=== PATIENT | female | born 1955 | race American Indian/Alaskan Native ===

== ENCOUNTER 2019-12-10 11:21 | Inpatient (IN) | payer MEDICAID, OTHER ==
--- NOTE | 2019-12-10 12:18 | XRay Report ---
CHEST 1 VIEW 12/10/2019 11:10 AM INDICATION / CLINICAL INFORMATION: Shortness of breath. COMPARISON: None available. FINDINGS: SUPPORT DEVICES: None. HEART / MEDIASTINUM: Mild cardiomegaly. LUNGS / PLEURA: There is a small right pleural effusion and there is mild pulmonary vascular congesti on. No pneumothorax. ADDITIONAL FINDINGS: No significant additional findings. IMPRESSION: 1. Findings probably reflecting CHF with a small right pleural effusion, mild cardiomegaly, and mild pulmonary vascular congestion. Signer Name: Isaac Johnson MD Signed: 12/10/2019 12:13 PM Workstation Name: [id number]
--- NOTE | 2019-12-10 12:23 | Emergency Department Report ---
ED Shortness of Breath HPI - General Chief Complaint: Arrhythmia/Palpitations Stated Complaint: KEENA Time Seen by Provider: 12/10/19 11:49 Source: patient, EMS Mode of arrival: Stretcher Limitations: No Limitations - History of Present Illness Initial Comments: 64-year-old female with no known past medical history (denies hypertension contrary to triage) and takes no current medications presents to the hospital complaining of progressive worsening shortness of breath x3 weeks. Positive dyspnea exertion, worsening orthopnea, and PND. Cough occasionally productive of clear sputum. Patient denies chest pain, or fever. Intermittent ankle and feet swelling have also been noted that improves with elevation. Patient does not currently have a primary care doctor or see a station baggage agent. As per medical record review patient was admitted here in April 2013 and had a cardiac cath showed normal coronary arteries and LV function. EMS EKGs (2 of them) shows bigemeny and trigemeny - Related Data Home Medications Medication Instructions Recorded Confirmed Last Taken No Known Home Medications [No 12/10/19 12/10/19 Unknown Reported Home Medications] Allergies Allergy/AdvReac Type Severity Reaction Status Date / Time tramadol Allergy Rash, Verified 07/14/13 10:15 HIVES, ITCH,CHEST PAIN, BURNING morphine AdvReac HIVES, Verified 07/14/13 10:15 ITCH, CHEST PAIN, BURNING Sulfa (Sulfonamide AdvReac HIVES, Verified 07/14/13 10:15 Antibiotics) ITCH,CHEST PAIN, BURNING ED Review of Systems ROS: Stated complaint: KEENA Other details as noted in HPI ED Past Medical Hx - Past Medical History Hx Hypertension: Yes (06/2013) Hx Congestive Heart Failure: No Hx Diabetes: No Hx Asthma: No Hx COPD: No - Surgical History Additional Surgical History: left ankle. . hysterectomy - Social History Smoking Status: Never Smoker Substance Use Type: None - Medications Home Medications: Home Medications Medication Instructions Recorded Confirmed Last Taken Type No Known Home Medications [No 12/10/19 12/10/19 Unknown History Reported Home Medications] ED Physical Exam - General Limitations: No Limitations ED Course Vital Signs 12/10/19 12/10/19 12/10/19 11:34 11:44 11:45 Temperature 97.9 F Pulse Rate 94 H 92 H Respiratory 24 22 31 H Rate Blood Pressure 116/77 Blood Pressure 124/84 [Right] O2 Sat by Pulse 94 100 Oximetry 12/10/19 12/10/19 12/10/19 11:59 12:00 12:16 Temperature Pulse Rate 90 94 H Respiratory 18 12 21 Rate Blood Pressure 116/77 94/76 Blood Pressure [Right] O2 Sat by Pulse 100 100 100 Oximetry 12/10/19 12/10/19 12/10/19 12:30 12:46 13:00 Temperature Pulse Rate 92 H 86 89 Respiratory 33 H 22 25 H Rate Blood Pressure 109/97 119/80 117/79 Blood Pressure [Right] O2 Sat by Pulse 100 100 100 Oximetry 12/10/19 12/10/19 12/10/19 13:16 13:30 13:45 Temperature Pulse Rate 96 H 98 H Respiratory 28 H 14 30 H Rate Blood Pressure 117/79 125/85 137/89 Blood Pressure [Right] O2 Sat by Pulse 100 100 100 Oximetry 12/10/19 12/10/19 12/10/19 14:00 14:15 14:30 Temperature Pulse Rate Respiratory 29 H 24 22 Rate Blood Pressure 137/89 138/91 120/101 Blood Pressure [Right] O2 Sat by Pulse Oximetry 12/10/19 12/10/19 12/10/19 14:46 15:00 15:15 Temperature Pulse Rate Respiratory 17 30 H 25 H Rate Blood Pressure 120/101 120/101 124/105 Blood Pressure [Right] O2 Sat by Pulse Oximetry 12/10/19 12/10/19 12/10/19 15:30 15:45 16:00 Temperature Pulse Rate Respiratory 31 H 28 H 33 H Rate Blood Pressure 124/105 132/102 135/101 Blood Pressure [Right] O2 Sat by Pulse Oximetry 12/10/19 16:16 Temperature Pulse Rate Respiratory 23 Rate Blood Pressure 132/82 Blood Pressure [Right] O2 Sat by Pulse Oximetry - Consultations Consultation #1: 12/10/19 13:34 Case D/w Dr Lewis recommends Lasix 40 mg IV twice a day. Will consult for echocardiogram ED Medical Decision Making - Lab Data Result diagrams: 12/10/19 12:13 12/10/19 12:13 Lab Results 12/10/19 12/10/19 12/10/19 Range/Units 12:13 12:13 12:13 WBC 6.5 (4.5-11.0) K/mm3 RBC 3.60 L (3.65-5.03) M/mm3 Hgb 11.4 (10.1-14.3) gm/dl Hct 35.5 (30.3-42.9) % MCV 99 H (79-97) fl MCH 32 (28-32) pg MCHC 32 (30-34) % RDW 17.3 H (13.2-15.2) % Plt Count 298 (140-440) K/mm3 Lymph % (Auto) 32.7 (13.4-35.0) % [place] % (Auto) 6.4 (0.0-7.3) % Eos % (Auto) 0.6 (0.0-4.3) % Baso % (Auto) 0.7 (0.0-1.8) % Lymph # 2.1 (1.2-5.4) K/mm3 [place] # 0.4 (0.0-0.8) K/mm3 Eos # 0.0 (0.0-0.4) K/mm3 Baso # 0.0 (0.0-0.1) K/mm3 Seg Neutrophils % 59.6 (40.0-70.0) % Seg Neutrophils # 3.9 (1.8-7.7) K/mm3 PT 15.3 H (12.2-14.9) Sec. INR 1.24 H (0.87-1.13) APTT 27.3 (24.2-36.6) Sec. Sodium 137 (137-145) mmol/L Potassium 4.0 (3.6-5.0) mmol/L Chloride 100.3 (98-107) mmol/L Carbon Dioxide 24 (22-30) mmol/L Anion Gap 17 mmol/L BUN 13 (7-17) mg/dL Creatinine 0.8 (0.7-1.2) mg/dL Estimated GFR > 60 ml/min BUN/Creatinine Ratio 16 % Glucose 145 H (65-100) mg/dL Calcium 9.6 (8.4-10.2) mg/dL Magnesium 2.10 (1.7-2.3) mg/dL Troponin T < 0.010 (0.00-0.029) ng/mL NT-Pro-B Natriuret Pep (0-900) pg/mL 12/10/19 Range/Units 12:13 WBC (4.5-11.0) K/mm3 RBC (3.65-5.03) M/mm3 Hgb (10.1-14.3) gm/dl Hct (30.3-42.9) % MCV (79-97) fl MCH (28-32) pg MCHC (30-34) % RDW (13.2-15.2) % Plt Count (140-440) K/mm3 Lymph % (Auto) (13.4-35.0) % [place] % (Auto) (0.0-7.3) % Eos % (Auto) (0.0-4.3) % Baso % (Auto) (0.0-1.8) % Lymph # (1.2-5.4) K/mm3 [place] # (0.0-0.8) K/mm3 Eos # (0.0-0.4) K/mm3 Baso # (0.0-0.1) K/mm3 Seg Neutrophils % (40.0-70.0) % Seg Neutrophils # (1.8-7.7) K/mm3 PT (12.2-14.9) Sec. INR (0.87-1.13) APTT (24.2-36.6) Sec. Sodium (137-145) mmol/L Potassium (3.6-5.0) mmol/L Chloride (98-107) mmol/L Carbon Dioxide (22-30) mmol/L Anion Gap mmol/L BUN (7-17) mg/dL Creatinine (0.7-1.2) mg/dL Estimated GFR ml/min BUN/Creatinine Ratio % Glucose (65-100) mg/dL Calcium (8.4-10.2) mg/dL Magnesium (1.7-2.3) mg/dL Troponin T (0.00-0.029) ng/mL NT-Pro-B Natriuret Pep 53609 H (0-900) pg/mL - EKG Data -: EKG Interpreted by Me (FREQUENT PVC'S ) EKG shows normal: sinus rhythm, ST-T waves (NO STEMI) Rate: normal Critical Care Time: No Critical care attestation.: If time is entered above; I have spent that time in minutes in the direct care of this critically ill patient, excluding procedure time. ED Disposition Clinical Impression: New onset of congestive heart failure Disposition: DC-09 OP ADMIT IP TO THIS HOSP Is pt being admited?: Yes Condition: Stable Time of Disposition: 13:38 (Dr Duque/hosp)
[2019-12-10 12:31] LABS: Basophils % (Auto) 0.7 % (0.0-1.8); Eosinophils % (Auto) 0.6 % (0.0-4.3); Hematocrit 35.5 % (30.3-42.9); Hemoglobin 11.4 gm/dl (10.1-14.3); Lymphocytes # (Auto) 2.1 K/mm3 (1.2-5.4); Lymphocytes % (Auto) 32.7 % (13.4-35.0); Mean Corpuscular HGB Conc 32 % (30-34); Mean Corpuscular Volume 99 fl (79-97); Monocytes # (Auto) 0.4 K/mm3 (0.0-0.8); Monocytes % (Auto) 6.4 % (0.0-7.3); Platelet Count 298 K/mm3 (140-440); Red Cell Distribution Width 17.3 % (13.2-15.2)
[2019-12-10 12:43] LABS: INR 1.24 (0.87-1.13)
[2019-12-10 12:44] LABS: Partial Thromboplastin Time 27.3 Sec. (24.2-36.6)
[2019-12-10 12:46] LABS: BUN/Creatinine Ratio 16; Blood Urea Nitrogen 13 mg/dL (7-17); Calcium 9.6 mg/dL (8.4-10.2); Hemolysis Index 0
[2019-12-10] MEDS ORDERED: FUROSEMIDE 40 MG/4 ML INJ IV ONE ×2 (13:25→20:50)
[2019-12-10] MEDS ORDERED: ONDANSETRON 4 MG/2 ML INJ IV PRN ×2 (20:47→20:49)
[2019-12-10] MEDS ORDERED: MORPHINE 2 MG/1 ML INJ IV PRN (20:47)
--- NOTE | 2019-12-10 20:47 | History and Physical Report ---
History of Present Illness Date of examination: 12/10/19 Date of admission: 12/10/19 13:38 Chief complaint: Dyspnea on exertion for 3 weeks History of present illness: 61-year-old -[place] female with no significant past medical history comes in for shortness of breath on exertion for 3 weeks. This is a new development. Patient never had shortness of breath or chest pain or palpitations in the past. Patient was never diagnosed with hypertension or lupe estive heart failure. Patient has now shortness of breath on minimal exertion and orthopnea. Patient is not able to walk up to 100 m. Patient was attributing it to the mask she wears constantly but off lately without the mask patient has been short of breath. Orthopnea present. No PND attacks. No chest pain. No palpitations. Shortness of breath consistent with class IV NYHA symptoms. Exertion is an exacerbating factor rest is a relieving factor. - Past Medical History Hypertension: Yes (06/2013) Not on any medicines now. - Surgical History Additional Surgical History: left ankle. . hysterectomy - Social History Smoking Status: Never Smoker Substance Use Type: None Family history Htn - Medications Home Medications: Home Medications Medication Instructions Recorded Confirmed Last Taken Type No Known Home Medications [No 12/10/19 12/10/19 Unknown History Reported Home Medications] Review of Systems ROS: Constitutional no weight loss or weight gain no fever or chills HEENT no sore throat no post nasal drip no diplopia Neck no neck stiffness no lymph gland enlargement Chest and lungs shortness of breath on minimal exertion and orthopnea present. No palpitations. 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 Skin no rash no itching Psychiatric no depression no homicidal or suicidal tendencies Hematologic no lymphedema or bruising Endocrine no polydipsia no polyuria no cold intolerance no heat intolerance Medications and Allergies Allergies Allergy/AdvReac Type Severity Reaction Status Date / Time tramadol Allergy Rash, Verified 07/14/13 10:15 HIVES, ITCH,CHEST PAIN, BURNING morphine AdvReac HIVES, Verified 07/14/13 10:15 ITCH, CHEST PAIN, BURNING Sulfa (Sulfonamide AdvReac HIVES, Verified 07/14/13 10:15 Antibiotics) ITCH,CHEST PAIN, BURNING Home Medications Medication Instructions Recorded Confirmed Last Taken Type No Known Home Medications [No 12/10/19 12/10/19 Unknown History Reported Home Medications] Exam - Constitutional Vitals: Temp Pulse Resp BP Pulse Ox 98.1 F 93 H 16 125/83 99 12/10/19 19:23 12/10/19 19:23 12/10/19 19:23 12/10/19 19:23 12/10/19 19:23 General appearance: Present: no acute distress, well-nourished - EENT Eyes: Present: PERRL ENT: hearing intact, clear oral mucosa - Neck Neck: Present: supple, normal ROM - Respiratory Respiratory effort: normal Respiratory: bilateral: CTA - Cardiovascular Heart rate: 78 Rhythm: regular Heart Sounds: Present: S1 & S2. Absent: rub, click - Extremities Extremities: no ischemia, pulses intact, pulses symmetrical, No edema Peripheral Pulses: within normal limits - Abdominal General gastrointestinal: Present: soft, non-tender, non-distended, normal bowel sounds Female genitourinary: Present: normal - Rectal Rectal Exam: deferred - Integumentary Integumentary: Present: clear, warm, dry - Musculoskeletal Musculoskeletal: gait normal, strength equal bilaterally - Psychiatric Psychiatric: appropriate mood/affect, intact judgment & insight - Neurologic Neurologic: CNII-XII intact, moves all extremities - Allied Health Allied health notes reviewed: nursing, case management HEART Score - HEART Score History: Moderately suspicious Age: 45-65 Risk factors: No known risk factors Troponin: Troponin T < 0.010 ng/mL (0.00-0.029) 12/10/19 12:13 - Critical Actions Critical Actions: 0-3 pts:0.9-1.7%risk of adverse cardiac event.Candidate for discharge Results - Labs CBC & Chem 7: 12/10/19 12:13 12/10/19 12:13 Labs: Laboratory Last Values WBC 6.5 K/mm3 (4.5-11.0) 12/10/19 12:13 RBC 3.60 M/mm3 (3.65-5.03) L 12/10/19 12:13 Hgb 11.4 gm/dl (10.1-14.3) 12/10/19 12:13 Hct 35.5 % (30.3-42.9) 12/10/19 12:13 MCV 99 fl (79-97) H 12/10/19 12:13 MCH 32 pg (28-32) 12/10/19 12:13 MCHC 32 % (30-34) 12/10/19 12:13 RDW 17.3 % (13.2-15.2) H 12/10/19 12:13 Plt Count 298 K/mm3 (140-440) 12/10/19 12:13 Lymph % (Auto) 32.7 % (13.4-35.0) 12/10/19 12:13 [place] % (Auto) 6.4 % (0.0-7.3) 12/10/19 12:13 Eos % (Auto) 0.6 % (0.0-4.3) 12/10/19 12:13 Baso % (Auto) 0.7 % (0.0-1.8) 12/10/19 12:13 Lymph # 2.1 K/mm3 (1.2-5.4) 12/10/19 12:13 [place] # 0.4 K/mm3 (0.0-0.8) 12/10/19 12:13 Eos # 0.0 K/mm3 (0.0-0.4) 12/10/19 12:13 Baso # 0.0 K/mm3 (0.0-0.1) 12/10/19 12:13 Seg Neutrophils % 59.6 % (40.0-70.0) 12/10/19 12:13 Seg Neutrophils # 3.9 K/mm3 (1.8-7.7) 12/10/19 12:13 PT 15.3 Sec. (12.2-14.9) H 12/10/19 12:13 INR 1.24 (0.87-1.13) H 12/10/19 12:13 APTT 27.3 Sec. (24.2-36.6) 12/10/19 12:13 Sodium 137 mmol/L (137-145) 12/10/19 12:13 Potassium 4.0 mmol/L (3.6-5.0) 12/10/19 12:13 Chloride 100.3 mmol/L (98-107) 12/10/19 12:13 Carbon Dioxide 24 mmol/L (22-30) 12/10/19 12:13 Anion Gap 17 mmol/L 12/10/19 12:13 BUN 13 mg/dL (7-17) 12/10/19 12:13 Creatinine 0.8 mg/dL (0.7-1.2) 12/10/19 12:13 Estimated GFR > 60 ml/min 12/10/19 12:13 BUN/Creatinine Ratio 16 % 12/10/19 12:13 Glucose 145 mg/dL (65-100) H 12/10/19 12:13 Calcium 9.6 mg/dL (8.4-10.2) 12/10/19 12:13 Magnesium 2.10 mg/dL (1.7-2.3) 12/10/19 12:13 Troponin T < 0.010 ng/mL (0.00-0.029) 12/10/19 12:13 NT-Pro-B Natriuret Pep 52715 pg/mL (0-900) H 12/10/19 12:13 Short CBC 12/10/19 Range/Units 12:13 WBC 6.5 (4.5-11.0) K/mm3 Hgb 11.4 (10.1-14.3) gm/dl Hct 35.5 (30.3-42.9) % Plt Count 298 (140-440) K/mm3 BMP 12/10/19 12:13 Sodium 137 Potassium 4.0 Chloride 100.3 Carbon Dioxide 24 BUN 13 Creatinine 0.8 Glucose 145 H Calcium 9.6 Cardiac Enzymes 12/10/19 Range/Units 12:13 Troponin T < 0.010 (0.00-0.029) ng/mL - Imaging and Cardiology EKG: report reviewed Imaging and Cardiology: Chest x-ray Findings probably reflecting CHF with a small right pleural effusion mild cardio megaly and mild pulmonary vascular congestion Pozo/IV: Voiding Method Toilet IV Catheter Type [Left Peripheral IV Antecubital] Assessment and Plan Advance Directives: Yes (Full code) VTE prophylaxis?: Chemical Plan of care discussed with patient/family: Yes - Patient Problems (1) New onset of congestive heart failure Current Visit: Yes Status: Acute Plan to address problem: New onset of congestive heart failure Probably cardiomyopathy Etiology unclear patient does not have any precipitating factors like hypertension or diabetes or kidney disease IV Lasix 40 mg every 12 Daily weights Daily intake output Echocardiogram for ejection fraction and valve level function and motion abnormalities Cardiology consult requested Added low-dose beta-blockers and low-dose VALERI inhibitor use (2) Hypertension Current Visit: No Status: Chronic Qualifiers: Hypertension type: essential hypertension Qualified Code(s): I10 - Essential (primary) hypertension Plan to address problem: We will trend the blood pressure and add antihypertensives as necessary Added lisinopril 2.5 mg once a day and Coreg 3.125 every 12 for the congestive heart failure (3) Acute exacerbation of CHF (congestive heart failure) Current Visit: Yes Status: Acute Qualifiers: Heart failure type: combined systolic and diastolic Qualified Code(s): I50.43 - Acute on chronic combined systolic (congestive) and diastolic (congestive) heart failure Plan to address problem: New onset Echocardiogram for ejection fraction and valvular function IV Lasix 40 mg every 12 Daily intake output and weights Cardiology consult (4) DVT prophylaxis Current Visit: Yes Status: Acute Plan to address problem: On heparin and GI prophylaxis
[2019-12-10] MEDS ORDERED: ACETAMINOPHEN 325 MG TAB PO PRN (20:49)
[2019-12-10] MEDS: LISINOPRIL 5 MG TAB PO SCH (21:34)
[2019-12-10] MEDS: FAMOTIDINE 20 MG TAB PO SCH (21:34)
[2019-12-10] MEDS: carvediloL 3.125 MG TAB PO SCH (21:35)
[2019-12-10] MEDS: POTASSIUM CHLORIDE ER 20 MEQ TAB PO SCH (21:37)
[2019-12-11 04:26] LABS: Basophils % (Auto) 0.7 % (0.0-1.8); Eosinophils # (Auto) 0.2 K/mm3 (0.0-0.4); Eosinophils % (Auto) 2.7 % (0.0-4.3); Hematocrit 35.1 % (30.3-42.9); Hemoglobin 11.4 gm/dl (10.1-14.3); Lymphocytes # (Auto) 2.9 K/mm3 (1.2-5.4); Lymphocytes % (Auto) 39.4 % (13.4-35.0); Mean Corpuscular HGB Conc 33 % (30-34); Mean Corpuscular Volume 98 fl (79-97); Monocytes # (Auto) 0.4 K/mm3 (0.0-0.8); Monocytes % (Auto) 5.7 % (0.0-7.3); Platelet Count 265 K/mm3 (140-440); Red Blood Count 3.57 M/mm3 (3.65-5.03); Red Cell Distribution Width 16.4 % (13.2-15.2)
[2019-12-11 04:42] LABS: BUN/Creatinine Ratio 18; Blood Urea Nitrogen 16 mg/dL (7-17); Calcium 9.2 mg/dL (8.4-10.2); Hemolysis Index 2
[2019-12-11] MEDS: FUROSEMIDE 40 MG/4 ML INJ IV SCH ×2 (06:04→19:50)
[2019-12-11] MEDS: ACETAMINOPHEN 325 MG TAB PO PRN ×2 (06:59→15:10)
[2019-12-11] MEDS: FAMOTIDINE 20 MG TAB PO SCH ×2 (10:29→22:06)
[2019-12-11] MEDS: LISINOPRIL 5 MG TAB PO SCH (10:29)
[2019-12-11] MEDS: carvediloL 3.125 MG TAB PO SCH ×2 (10:31→22:07)
[2019-12-11] MEDS: POTASSIUM CHLORIDE ER 20 MEQ TAB PO SCH ×2 (10:33→22:07)
--- NOTE | 2019-12-11 11:00 | Consultation ---
History of Present Illness Consult date: 12/11/19 Requesting physician: ADRIANNE PELAEZ Consult reason: congestive heart failure History of present illness: 64-year-old female denies any past medical history of hypertension diabetes cholesterol. 2012 had cardiac catheterization revealed normal coronaries with normal LV function for atypical chest pain. Patient works at a [employer]. But the for the last few weeks been having shortness of breath with exertion having 2 pillow orthopnea and PND. Patient having some feet swelling. Came to emergency room found to have congestive heart failure with a BNP of 20,000. Patient was given IV Lasix , shortness of breath has improved. Patient denies any fever chills nausea vomiting or syncope. Past History Past Medical History: denies: hypertension, hyperlipidemia Past Surgical History: No surgical history, Other (fibroids) Social history: denies: smoking, alcohol abuse, prescription drug abuse Medications and Allergies Allergies Allergy/AdvReac Type Severity Reaction Status Date / Time tramadol Allergy Rash, Verified 07/14/13 10:15 HIVES, ITCH,CHEST PAIN, BURNING morphine AdvReac HIVES, Verified 07/14/13 10:15 ITCH, CHEST PAIN, BURNING Sulfa (Sulfonamide AdvReac HIVES, Verified 07/14/13 10:15 Antibiotics) ITCH,CHEST PAIN, BURNING Home Medications Medication Instructions Recorded Confirmed Last Taken Type No Known Home Medications [No 12/10/19 12/10/19 Unknown History Reported Home Medications] Active Meds: Active Medications Acetaminophen (Tylenol) 650 mg PO Q4H PRN PRN Reason: Pain MILD(1-3)/Fever >100.5/HUERTA Last Admin: 12/11/19 06:59 Dose: 650 mg Documented by: Carvedilol (Coreg) 3.125 mg PO BID [facility] Last Admin: 12/11/19 10:31 Dose: 3.125 mg Documented by: Famotidine (Pepcid) 20 mg PO BID [facility] Last Admin: 12/11/19 10:29 Dose: 20 mg Documented by: Furosemide (Lasix) 40 mg IV 0600,1800 [facility] Last Admin: 12/11/19 06:04 Dose: 40 mg Documented by: Lisinopril (Zestril) 2.5 mg PO QDAY [facility] Last Admin: 12/11/19 10:29 Dose: 2.5 mg Documented by: Morphine Sulfate (Morphine) 2 mg IV Q4H PRN PRN Reason: Pain, Moderate (4-6) Ondansetron HCl (Zofran) 4 mg IV Q8H PRN PRN Reason: Nausea And Vomiting Oxycodone/Acetaminophen (Percocet 5/325) 1 tab PO Q6H PRN PRN Reason: Pain, Moderate (4-6) Potassium Chloride (K-Dur) 20 meq PO Q12H [facility] Last Admin: 12/11/19 10:33 Dose: 20 meq Documented by: Sodium Chloride (Sodium Chloride Flush Syringe 10 Ml) 10 ml IV PRN PRN PRN Reason: LINE FLUSH Sodium Chloride (Sodium Chloride Flush Syringe 10 Ml) 10 ml IV BID [facility] Last Admin: 12/11/19 10:31 Dose: 10 ml Documented by: Review of Systems All systems: negative (hpi) Physical Examination Vital Signs Resp 24 12/10/19 11:34 General appearance: no acute distress, well-nourished HEENT: Positive: PERRL, Mucus Membranes Moist Neck: Positive: neck supple, trachea midline Cardiac: Positive: Reg Rate and Rhythm, S1/S2. Negative: Audible Murmur Lungs: Positive: clear to auscultation, Normal Breath Sounds Neuro: Positive: Grossly Intact Abdomen: Positive: Soft, Active Bowel Sounds. Negative: Tender, Distended Female genitourinary: deferred Skin: Positive: Clear Incision: Cardiac Cath Site Musculoskeletal: No Pain, Normal Range of Motion Extremities: Present: normal. Absent: edema Results 12/11/19 03:45 12/11/19 03:45 Coagulation 12/10/19 Range/Units 12:13 PT 15.3 H (12.2-14.9) Sec. INR 1.24 H (0.87-1.13) APTT 27.3 (24.2-36.6) Sec. CBC 12/10/19 12/11/19 Range/Units 12:13 03:45 WBC 6.5 7.4 (4.5-11.0) K/mm3 RBC 3.60 L 3.57 L (3.65-5.03) M/mm3 Hgb 11.4 11.4 (10.1-14.3) gm/dl Hct 35.5 35.1 (30.3-42.9) % Plt Count 298 265 (140-440) K/mm3 Lymph # 2.1 2.9 (1.2-5.4) K/mm3 [place] # 0.4 0.4 (0.0-0.8) K/mm3 Eos # 0.0 0.2 (0.0-0.4) K/mm3 Baso # 0.0 0.0 (0.0-0.1) K/mm3 Comprehensive Metabolic Panel 12/10/19 12/11/19 Range/Units 12:13 03:45 Sodium 137 142 (137-145) mmol/L Potassium 4.0 3.9 (3.6-5.0) mmol/L Chloride 100.3 101.7 (98-107) mmol/L Carbon Dioxide 24 27 (22-30) mmol/L BUN 13 16 (7-17) mg/dL Creatinine 0.8 0.9 (0.7-1.2) mg/dL Glucose 145 H 105 H (65-100) mg/dL Calcium 9.6 9.2 (8.4-10.2) mg/dL - Imaging and Cardiology Cardiac cath: report reviewed (04/2013 normal coronaries normal LV function) EKG interpretations - Telemetry EKG Rhythm: Sinus Rhythm (Sinus rhythm LVH PVCs) Assessment and Plan Patient will be diuresed continue beta-jodi therapy and VALERI inhibitor's monitor labs waiting on echo ischemic evaluation. Discussed with patient about fluid restriction unclear etiology of why patient went into congestive heart failure. - Patient Problems (1) Acute exacerbation of CHF (congestive heart failure) Current Visit: Yes Status: Acute Qualifiers: Heart failure type: combined systolic and diastolic Qualified Code(s): I50.43 - Acute on chronic combined systolic (congestive) and diastolic (congestive) heart failure (2) New onset of congestive heart failure Current Visit: Yes Status: Acute (3) Hypertension Current Visit: No Status: Chronic Qualifiers: Hypertension type: essential hypertension Qualified Code(s): I10 - Essential (primary) hypertension
--- NOTE | 2019-12-11 21:17 | Progress Note ---
Assessment and Plan Day #2 Symptomatically slightly better Echocardiogram done but the report is not available - Patient Problems (1) New onset of congestive heart failure Current Visit: Yes Status: Acute Plan to address problem: New onset of congestive heart failure Probably cardiomyopathy Etiology unclear patient does not have any precipitating factors like hypertension or diabetes or kidney disease IV Lasix 40 mg every 12 Daily weights Daily intake output Echocardiogram for ejection fraction and valve level function and motion abnormalities Cardiology consult requested Added low-dose beta-blockers and low-dose VALERI inhibitor use Continue diuresis (2) Hypertension Current Visit: No Status: Chronic Qualifiers: Hypertension type: essential hypertension Qualified Code(s): I10 - Essential (primary) hypertension Plan to address problem: We will trend the blood pressure and add antihypertensives as necessary Added lisinopril 2.5 mg once a day and Coreg 3.125 every 12 for the congestive heart failure (3) Acute exacerbation of CHF (congestive heart failure) Current Visit: Yes Status: Acute Qualifiers: Heart failure type: combined systolic and diastolic Qualified Code(s): I50.43 - Acute on chronic combined systolic (congestive) and diastolic (congestive) heart failure Plan to address problem: New onset Echocardiogram for ejection fraction and valvular function IV Lasix 40 mg every 12 Daily intake output and weights Cardiology consult appreciated Echocardiogram done Awaiting echo report (4) DVT prophylaxis Current Visit: Yes Status: Acute Plan to address problem: On heparin and GI prophylaxis Subjective Date of service: 12/11/19 Principal diagnosis: CHF exacerbation and new onset CHF Interval history: Day 2 61-year-old -[place] female with no significant past medical history comes in for shortness of breath on exertion for 3 weeks. This is a new development. Patient never had shortness of breath or chest pain or pa lpitations in the past. Patient was never diagnosed with hypertension or congestive heart failure. Patient has now shortness of breath on minimal exertion and orthopnea. Patient is not able to walk up to 100 m. Patient was attributing it to the mask she wears constantly but off lately without the mask patient has been short of breath. Orthopnea present. No PND attacks. No chest pain. No palpitations. Shortness of breath consistent with class IV NYHA symptoms. Exertion is an exacerbating factor rest is a relieving factor. Symptomatically better Echocardiogram done-awaiting results Objective - Constitutional Vitals: Vital Signs - 12hr 12/11/19 12/11/1920 10:00 10:29 10:31 Temperature Pulse Rate 70 78 78 Respiratory Rate Blood Pressure 137/87 137/87 O2 Sat by Pulse Oximetry 12/11/19 12/11/19 12/11/19 13:56 17:14 20:03 Temperature 96.7 F L 98.7 F 97.6 F Pulse Rate 65 66 51 L Respiratory 20 20 18 Rate Blood Pressure 92/63 104/64 101/53 O2 Sat by Pulse 99 100 99 Oximetry 12/11/19 20:51 Temperature Pulse Rate Respiratory 20 Rate Blood Pressure O2 Sat by Pulse Oximetry General appearance: Present: no acute distress, well-nourished - EENT Eyes: PERRL, EOM intact ENT: hearing intact, clear oral mucosa Ears: bilateral: normal - Neck Neck: supple, normal ROM - Respiratory Respiratory effort: normal Respiratory: bilateral: CTA, rales - Breasts Breasts: normal - Cardiovascular Heart rate: 78 Rhythm: regular Heart Sounds: Present: S1 & S2. Absent: gallop, rub Extremities: pulses intact, No edema, normal color, Full ROM - Gastrointestinal General gastrointestinal: Present: soft, non-tender, non-distended, normal bowel sounds - Genitourinary Female genitourinary: normal - Integumentary Integumentary: clear, warm, dry - Musculoskeletal Musculoskeletal: 1, strength equal bilaterally - Neurologic Neurologic: moves all extremities - Psychiatric Psychiatric: memory intact, appropriate mood/affect, intact judgment & insight - Allied health notes Allied health notes reviewed: nursing, case management - Labs CBC & Chem 7: 12/11/19 03:45 12/11/19 03:45 Labs: Abnormal lab results 12/11/19 12/11/19 Range/Units 03:45 03:45 RBC 3.57 L (3.65-5.03) M/mm3 MCV 98 H (79-97) fl RDW 16.4 H (13.2-15.2) % Lymph % (Auto) 39.4 H (13.4-35.0) % Glucose 105 H (65-100) mg/dL HEART Score - HEART Score Age: 45-65 Risk factors: No known risk factors Troponin: Troponin T < 0.010 ng/mL (0.00-0.029) 12/10/19 12:13 - Critical Actions Critical Actions: 0-3 pts:0.9-1.7%risk of adverse cardiac event.Candidate for discharge
[2019-12-11] MEDS: oxyCODONE /ACETAMINOPHEN 5-325MG TAB PO PRN (22:07)
[2019-12-12] MEDS: FUROSEMIDE 40 MG/4 ML INJ IV SCH ×3 (07:50→18:30)
[2019-12-12] MEDS ORDERED: REGADENOSON 0.4 MG/5 ML INJ IV ONE ×2 (08:48→08:51)
[2019-12-12] MEDS: oxyCODONE /ACETAMINOPHEN 5-325MG TAB PO PRN ×2 (09:10→15:15)
--- NOTE | 2019-12-12 12:52 | Progress Note ---
Assessment and Plan Lexiscan MPI stress test 12/12/2019 preliminary results - negative for ischemia; severe LV dysfunction. Convert IV Lasix to PO 40mg qDay tmr AM. Continue PO Aldactone 25mg qDay. Continue PO Coreg 3.125mg BID. Increase PO Lisinopril to 5mg qDay. Recommend increasing ambulation. Pt seen in conjunction with Dr. Lewis, who agrees with the assessment and plan of care. - Patient Problems (1) Nonischemic cardiomyopathy Current Visit: Yes Status: Chronic (2) Acute on chronic HFrEF (heart failure with reduced ejection fraction) Onset Date: ~12/07/19 Current Visit: Yes Status: Acute (3) Hypertension Current Visit: Yes Status: Chronic Qualifiers: Hypertension type: essential hypertension Qualified Code(s): I10 - Essential (primary) hypertension Subjective Date of service: 12/12/19 Principal diagnosis: CHF exacerbation Interval history: Pt sitting up in bed comfortably upon exam. No SOB or orthopnea this AM. Pt denies any additional cardiac complaints. Tele reviewed - NSR 80s w/PVCs; no acute events noted overnight. Objective Vital Signs - 12hr 12/12/19 12/12/19 12/12/19 03:47 05:58 05:59 Temperature 97.3 F L 98.6 F Pulse Rate 58 L 44 L 61 Respiratory 18 20 Rate Blood Pressure 94/54 94/71 O2 Sat by Pulse 100 100 100 Oximetry 12/12/19 12/12/19 12/12/19 08:01 10:00 10:19 Temperature 97.8 F Pulse Rate 68 61 Respiratory 18 20 Rate Blood Pressure 97/69 99/49 O2 Sat by Pulse 100 Oximetry 12/12/19 12/12/19 12/12/19 10:22 10:55 10:57 Temperature Pulse Rate Respiratory Rate Blood Pressure 126/83 125/91 101/59 O2 Sat by Pulse Oximetry 12/12/19 12/12/19 12/12/19 10:58 10:59 11:00 Temperature Pulse Rate Respiratory Rate Blood Pressure 96/69 86/59 118/76 O2 Sat by Pulse Oximetry - Physical Examination General: No Apparent Distress HEENT: Positive: PERRL, Normocephaly, Mucus Membranes Moist Neck: Positive: neck supple, trachea midline, JVD/HJR Cardiac: Positive: Reg Rate and Rhythm, S1/S2 Lungs: Positive: clear to auscultation (bilaterally) Neuro: Positive: Grossly Intact Abdomen: Positive: Soft, Active Bowel Sounds. Negative: Tender, Distended Skin: Negative: Rash, Wound Musculoskeletal: No Fluid Collection, No Pain, Normal Range of Motion Extremities: Present: upper extr. pulses, lower extr. pulses, edema (trace BLE edema) - Imaging and Cardiology EKG: report reviewed, image reviewed Pharmacologic stress test: pending Echo: report reviewed (12/10/2019: EF 15-20%; mild AR; mild aortic cusp sclerosis; mod-severe MR; mild TR) Cardiac cath: report reviewed (04/2013 - normal coronary anatomy; normal LV function) - Telemetry EKG Rhythm: Sinus Rhythm (w/PVCs) - EKG Sinus rhythms and dysrhythmias: sinus rhythm Ventricular dysrhythmias: ventricular premature com Chamber hypertrophy or enlargement: left ventricular hypertro
[2019-12-12] MEDS: POTASSIUM CHLORIDE ER 20 MEQ TAB PO SCH ×2 (15:13→22:11)
[2019-12-12] MEDS: FAMOTIDINE 20 MG TAB PO SCH ×2 (15:13→22:07)
[2019-12-12] MEDS: carvediloL 3.125 MG TAB PO SCH ×3 (15:14→22:11)
[2019-12-12] MEDS: LISINOPRIL 5 MG TAB PO SCH (15:14)
--- NOTE | 2019-12-12 18:47 | Treadmill Report ---
CARDIAC NUCLEAR PERFUSION STUDY REASON FOR STUDY: Congestive heart failure. IMAGING PROTOCOL: The patient received 10 mCi of Technetium 99m Tetrofosmin for resting image and 28 mCi of Technetium 99m Tetrofosmin for stress imaging. The imaging for the whole procedure was completed 30-90 minutes following the initial injection of Technetium 99m Tetrofosmin. The SPECT imaging in the 180 degree arc was performed in the right anterior oblique projection. Computerized reconstruction of the images was performed for analysis. IMAGING RESULTS: Cavity is dilated on both stress and rest. Distribution of radionuclide is normal in the anterior, inferior, septal and apical regions. Gated SPECT, EF shows severe LV dysfunction, EF 25% with global hypokinesis. The patient infused Lexiscan with no EKG changes. SUMMARY: 1. Negative Lexiscan EKG. 2. No significant myocardial ischemia noted. 3. Dilated LV stress and rest with normal myocardial perfusion suggestive of nonischemic cardiomyopathy with an EF calculated at 25%, severe global hypokinesis. JOB# [id number] SHALOM/STEVEN
[2019-12-12] MEDS: IBUPROFEN 800 MG TAB PO PRN (22:06)
--- NOTE | 2019-12-13 06:24 | Progress Note ---
Assessment and Plan Day #2 Symptomatically slightly better Echocardiogram done but the report is not available Day #3 C/o Palpitations intermittently ECHO severe LV dysfunction EF 15 to 20 percent LKexiscan negative - Patient Problems (1) Ventricular arrhythmia Current Visit: Yes Status: Acute Plan to address problem: Will defer to cardiology regarding treatment Discharge planning depending on cardiology (2) New onset of congestive heart failure Current Visit: Yes Status: Acute Plan to address problem: New onset of congestive heart failure Probably cardiomyopathy Etiology unclear patient does not have any precipitating factors like hypertension or diabetes or kidney disease IV Lasix 40 mg every 12 Daily weights Daily intake output Echocardiogram -ejection fraction 15 to 20 percent Added low-dose beta-blockers and low-dose VALERI inhibitor use Continue diuresis will discharge tomorrow if ok with cardiology (3) Hypertension Current Visit: Yes Status: Chronic Qualifiers: Hypertension type: essential hypertension Qualified Code(s): I10 - Essential (primary) hypertension Plan to address problem: We will trend the blood pressure and add antihypertensives as necessary Added lisinopril 2.5 mg once a day and Coreg 3.125 every 12 for the congestive heart failure Controlled (4) Acute exacerbation of CHF (congestive heart failure) Current Visit: Yes Status: Acute Qualifiers: Heart failure type: combined systolic and diastolic Qualified Code(s): I50.43 - Acute on chronic combined systolic (congestive) and diastolic (congestive) heart failure Plan to address problem: New onset Echocardiogram for ejection fraction and valvular function IV Lasix 40 mg every 12 Daily intake output and weights Cardiology consult appreciated Echocardiogram done--EF 15 to 20 percent Lexiscan negative for ischemia Severe systolic dysfunction Optimize medical treatment (5) DVT prophylaxis Current Visit: Yes Status: Acute Plan to address problem: On heparin and GI prophylaxis Subjective Date of service: 12/12/19 Principal diagnosis: CHF exacerbation Interval history: Day 3 61-year-old -[place] female with no significant past medical history comes in for shortness of breath on exertion for 3 weeks. This is a new development. Patient never had shortness of breath or chest pain or palpitations in the past. Patient was never diagnosed with hypertension or congestive heart failure. Patient has now shortness of breath on minimal exertion and orthopnea. Patient is not able to walk up to 100 m. Patient was attributing it to the mask she wears constantly but off lately without the mask patient has been short of breath. Orthopnea present. No PND attacks. No chest pain. No palpitations. Shortness of breath consistent with class IV NYHA symptoms. Exertion is an exacerbating factor rest is a relieving factor. Symptomatically better Palpitations present intermittently Lexiscan - negative ECHO EF 15 to 20 percent Objective - Constitutional Vitals: Vital Signs - 12hr 12/12/19 12/12/19 12/12/19 18:30 20:15 20:30 Temperature 98.3 F Pulse Rate 68 41 L 41 L Respiratory 20 Rate Blood Pressure 97/67 Blood Pressure 93/52 [Right] O2 Sat by Pulse 100 Oximetry 12/12/19 12/13/19 12/13/19 22:06 00:13 01:25 Temperature 98.6 F Pulse Rate 70 Respiratory 18 20 20 Rate Blood Pressure 93/64 Blood Pressure [Right] O2 Sat by Pulse 100 Oximetry 12/13/19 04:00 Temperature 97.6 F Pulse Rate 50 L Respiratory 18 Rate Blood Pressure Blood Pressure 106/87 [Right] O2 Sat by Pulse 100 Oximetry General appearance: Present: no acute distress, well-nourished - EENT Eyes: PERRL, EOM intact ENT: hearing intact, clear oral mucosa Ears: bilateral: normal - Neck Neck: supple, normal ROM - Respiratory Respiratory effort: normal Respiratory: bilateral: CTA - Breasts Breasts: normal - Cardiovascular Heart rate: 78 (PVC's) Rhythm: regular Heart Sounds: Present: S1 & S2. Absent: gallop, rub Extremities: pulses intact, No edema, normal color, Full ROM - Gastrointestinal General gastrointestinal: Present: soft, non-tender, non-distended, normal bowel sounds - Genitourinary Female genitourinary: normal - Integumentary Integumentary: clear, warm, dry - Musculoskeletal Musculoskeletal: 1, strength equal bilaterally - Neurologic Neurologic: CNII-XII intact, moves all extremities - Psychiatric Psychiatric: memory intact, appropriate mood/affect, intact judgment & insight - Allied health notes Allied health notes reviewed: nursing, case management - Labs CBC & Chem 7: 12/11/19 03:45 12/11/19 03:45 HEART Score - HEART Score Age: 45-65 Risk factors: No known risk factors Troponin: Troponin T < 0.010 ng/mL (0.00-0.029) 12/10/19 12:13 - Critical Actions Critical Actions: 0-3 pts:0.9-1.7%risk of adverse cardiac event.Candidate for discharge
[2019-12-13] MEDS: FAMOTIDINE 20 MG TAB PO SCH (09:36)
[2019-12-13] MEDS: POTASSIUM CHLORIDE ER 20 MEQ TAB PO SCH (09:37)
[2019-12-13] MEDS: IBUPROFEN 800 MG TAB PO PRN ×2 (09:37→14:47)
[2019-12-13] MEDS: LISINOPRIL 5 MG TAB PO SCH (09:37)
[2019-12-13] MEDS: carvediloL 3.125 MG TAB PO SCH (09:38)
[2019-12-13] MEDS ORDERED: SPIRONOLACTONE 25 MG TAB PO SCH (10:00)
[2019-12-13] MEDS ORDERED: FUROSEMIDE 40 MG TAB PO SCH (10:00)
[2019-12-13] MEDS ORDERED: DIGOXIN 0.5 MG/2 ML INJ IV ONE (11:00)
--- NOTE | 2019-12-13 13:29 | Progress Note ---
Assessment and Plan Stress test 12/12/2019 - negative for ischemia; EF 25%. Continue PO Lasix 40mg qDay. Continue PO Aldactone 25mg qDay. Continue PO Coreg 3.125mg BID. Continue PO Lisinopril 5mg qDay. Will give 1 dose of IV digoxin 250mcg today and initiate PO digoxin 125mcg daily beginning tomorrow. Currently stable cardiac status. Pt may be discharged from a Cardiology standpoint. F/u with Dr. Lewis in our [place] office on 12/26/2019 @ 9am ([phone]). Of note, pt requesting SS/disability paperwork to be filled out by physician. Will address as OP at scheduled f/u appt or may be filled out by PCP. Pt seen in conjunction with Dr. Lewis, who agrees with the assessment and plan of care. - Patient Problems (1) Nonischemic cardiomyopathy Current Visit: Yes Status: Chronic (2) Acute on chronic HFrEF (heart failure with reduced ejection fraction) Onset Date: ~12/07/19 Current Visit: Yes Status: Acute (3) Hypertension Current Visit: Yes Status: Chronic Qualifiers: Hypertension type: essential hypertension Qualified Code(s): I10 - Essential (primary) hypertension Subjective Date of service: 12/13/19 Principal diagnosis: CHF exacerbation Interval history: Pt sitting up in bed comfortably upon exam. No SOB or orthopnea this AM, though she does report some SOB with ambulation yesterday evening. Pt denies any additional cardiac complaints. Tele reviewed - NSR 70s w/PVCs; no acute events noted overnight. Objective Vital Signs - 12hr 12/13/19 12/13/19 12/13/19 04:00 04:50 07:21 Temperature 97.6 F 97.9 F 97.0 F L Pulse Rate 50 L 81 71 Pulse Rate [ Apical] Pulse Rate [ Right Radial] Respiratory 18 20 20 Rate Blood Pressure 125/89 120/84 Blood Pressure 106/87 [Right] O2 Sat by Pulse 100 100 100 Oximetry 12/13/19 12/13/19 12/13/19 09:34 09:36 09:37 Temperature Pulse Rate 42 L 86 86 Pulse Rate [ Apical] Pulse Rate [ Right Radial] Respiratory Rate Blood Pressure 93/65 93/65 93/65 Blood Pressure [Right] O2 Sat by Pulse 100 Oximetry 12/13/19 12/13/19 12/13/19 09:38 10:00 11:04 Temperature Pulse Rate 86 84 86 Pulse Rate [ 71 Apical] Pulse Rate [ 71 Right Radial] Respiratory 23 Rate Blood Pressure 93/56 101/58 Blood Pressure [Right] O2 Sat by Pulse Oximetry 12/13/19 11:27 Temperature 97.7 F Pulse Rate 64 Pulse Rate [ Apical] Pulse Rate [ Right Radial] Respiratory 18 Rate Blood Pressure 126/74 Blood Pressure [Right] O2 Sat by Pulse 100 Oximetry - Physical Examination General: No Apparent Distress HEENT: Positive: EOMI, Normocephaly, Mucus Membranes Moist Neck: Positive: neck supple, trachea midline. Negative: JVD/HJR Cardiac: Positive: Reg Rate and Rhythm, S1/S2 Lungs: Positive: clear to auscultation (bilaterally) Neuro: Positive: Grossly Intact Abdomen: Positive: Soft, Active Bowel Sounds. Negative: Tender, Distended Skin: Negative: Rash, Wound Musculoskeletal: No Fluid Collection, No Pain, Normal Range of Motion Extremities: Present: upper extr. pulses, lower extr. pulses, edema (trace BLE edema) - Imaging and Cardiology EKG: report reviewed, image reviewed Pharmacologic stress test: report reviewed (12/12/2019: negative for ischemia; EF 25%) Echo: report reviewed (12/10/2019: EF 15-20%; mild AR; mild aortic cusp sclerosis; mod-severe MR; mild TR) Cardiac cath: report reviewed (04/2013: normal coronaries; normal LV function) - Telemetry EKG Rhythm: Sinus Rhythm (w/PVCs) - EKG Sinus rhythms and dysrhythmias: sinus rhythm Ventricular dysrhythmias: ventricular premature com Chamber hypertrophy or enlargement: left ventricular hypertro
[2019-12-13] MEDS ORDERED: LISINOPRIL 5 MG TAB PO SCH (14:00)
--- NOTE | 2019-12-13 15:20 | Discharge Summary ---
Providers - Providers Date of Admission: 12/10/19 13:38 Attending physician: KAY MACKEY 12/10/19 13:33 Consult to Physician [CONS] Urgent Comment: JJ Castillo/DR PATEL @1120 Consulting Provider: THEODORA PATEL Physician Instructions: Reason For Exam: new onset chf Primary care physician: ACETYLENE TORCH BURNER Hospitalization Condition: Stable Disposition: DC-30 STILL A PATIENT Core Measure Documentation - Palliative Care Palliative Care/ Comfort Measures: Not Applicable Exam - Constitutional Vitals: Temp Pulse Resp BP Pulse Ox 97.7 F 86 18 139/93 100 12/13/19 11:27 12/13/19 14:47 12/13/19 11:27 12/13/19 14:47 12/13/19 11:27 Plan Prescriptions: Spironolactone [Aldactone] 25 mg PO QDAY #30 tablet carvediloL [Coreg] 3.125 mg PO BID #60 tablet Digoxin 125 mcg PO DAILY #30 tablet Potassium Chloride [K-Dur] 20 meq PO BID #60 tab Furosemide [Lasix TAB] 40 mg PO QDAY #30 tablet Lisinopril [Zestril] 5 mg PO DAILY #30 tablet
[2019-12-13 15:59] VITALS: BP 123/93
[2019-12-14] MEDS ORDERED: DIGOXIN 0.125 MG TAB PO SCH (17:00)
== END 2019-12-13 20:30 | disposition home or self-care (01) | DRG 293 ==
LOC: ED 11:21 → 4A 13:38
PROVIDERS: ADMIT Internal Medicine; ATTEND Internal Medicine
DX: I11.0 Hypertensive heart disease with heart failure (principal); I50.43 Acute on chronic combined systolic (congestive) and diastolic (congestive) heart failure; I42.8 Other cardiomyopathies; I49.3 Ventricular premature depolarization; Z90.710 Acquired absence of both cervix and uterus; Z88.5 Allergy status to narcotic agent; Z88.2 Allergy status to sulfonamides
CPT/HCPCS: 36415; 71045; 78452; 80048; 83036; 83735; 83880; 84484; 85025; 85610; 85730; 93005; 93017; 93306; G0378; A9502; J1160; J1940; J2785

== ENCOUNTER 2020-01-18 10:53 | Inpatient (IN) | payer OTHER ==
[2020-01-18] MEDS ORDERED: ASPIRIN 81 MG TAB CHEW PO ONE (11:31)
--- NOTE | 2020-01-18 11:39 | Emergency Department Report ---
ED Chest Pain HPI - General Stated Complaint: CHEST PAIN Time Seen by Provider: 01/18/20 11:23 - History of Present Illness Initial Comments: Patient is 64 years old female with history of congestive heart failure. Patient brought to the emergency room via EMS from home for evaluation of left sided chest pain started yesterday. Patient described her pain as dullness and heaviness sometimes with no radiation. Patient stated that pain is intermittent . Patient denied any shortness of breath, cough, fever or chills. Patient was admitted here last month and found to be in acute congestive heart failure. Patient had a normal coronary artery cardiac cath in 2012. MD Complaint: chest pain -: Last night Onset: during rest Pain Location: substernal Severity: moderate Quality: aching, heaviness Consistency: intermittent - Related Data Home Medications Medication Instructions Recorded Confirmed Last Taken Furosemide [Lasix TAB] 20 mg PO QDAY 01/18/20 01/18/20 Unknown Previous Rx's Medication Instructions Recorded Last Taken Type Digoxin 125 mcg PO DAILY #30 tablet 12/13/19 Unknown Rx Lisinopril [Zestril] 5 mg PO DAILY #30 tablet 12/13/19 Unknown Rx Potassium Chloride [K-Dur] 20 meq PO BID #60 tab 12/13/19 01/18/20 Rx Spironolactone [Aldactone] 25 mg PO QDAY #30 tablet 12/13/19 01/18/20 Rx carvediloL [Coreg] 3.125 mg PO BID #60 tablet 12/13/19 01/18/20 Rx Allergies Allergy/AdvReac Type Severity Reaction Status Date / Time tramadol Allergy Rash, Verified 07/14/13 10:15 HIVES, ITCH,CHEST PAIN, BURNING morphine AdvReac HIVES, Verified 07/14/13 10:15 ITCH, CHEST PAIN, BURNING Sulfa (Sulfonamide AdvReac HIVES, Verified 07/14/13 10:15 Antibiotics) ITCH,CHEST PAIN, BURNING Heart Score - HEART Score History: Moderately suspicious EKG: Non-specific Age: 45-65 Risk factors: > 3 risk factors or hx of atherosclerotic disease Troponin: < normal limit HEART Score: 5 - Critical Actions Critical Actions: 4-6 pts:12-16.6% risk of adverse cardiac event. Should be admitted ED Review of Systems ROS: Stated complaint: CHEST PAIN Other details as noted in HPI Comment: All other systems reviewed and negative Constitutional: denies: chills, fever Respiratory: denies: cough, shortness of breath, SOB with exertion Cardiovascular: chest pain. denies: palpitations Gastrointestinal: denies: abdominal pain, nausea, vomiting, diarrhea, constipation, hematemesis, melena, hematochezia Musculoskeletal: denies: back pain Neurological: denies: headache, weakness, numbness, paresthesias, confusion, abnormal gait ED Past Medical Hx - Past Medical History Hx Hypertension: Yes (06/2013) Hx Congestive Heart Failure: No Hx Diabetes: No Hx Asthma: No Hx COPD: No - Surgical History Additional Surgical History: left ankle. . hysterectomy - Social History Smoking Status: Never Smoker - Medications Home Medications: Home Medications Medication Instructions Recorded Confirmed Last Taken Type Digoxin 125 mcg PO DAILY #30 tablet 12/13/19 01/18/20 Unknown Rx Lisinopril [Zestril] 5 mg PO DAILY #30 tablet 12/13/19 01/18/20 Unknown Rx Potassium Chloride [K-Dur] 20 meq PO BID #60 tab 12/13/19 01/18/20 01/18/20 Rx Spironolactone [Aldactone] 25 mg PO QDAY #30 tablet 12/13/19 01/18/20 01/18/20 Rx carvediloL [Coreg] 3.125 mg PO BID #60 tablet 12/13/19 01/18/20 01/18/20 Rx Furosemide [Lasix TAB] 20 mg PO QDAY 01/18/20 01/18/20 Unknown History ED Physical Exam - General General appearance: alert, in no apparent distress - Head Head exam: Present: atraumatic, normocephalic, normal inspection - Eye Eye exam: Present: normal appearance - ENT ENT exam: Present: normal exam, normal orophraynx, mucous membranes moist - Neck Neck exam: Present: normal inspection, full ROM. Absent: tenderness, meningismus, lymphadenopathy, thyromegaly - Respiratory Respiratory exam: Present: normal lung sounds bilaterally - Cardiovascular Cardiovascular Exam: Present: regular rate, normal rhythm, normal heart sounds - GI/Abdominal GI/Abdominal exam: Present: soft, normal bowel sounds. Absent: distended, tenderness, guarding, rebound, rigid, organomegaly, mass, bruit, pulsatile mass - Extremities Exam Extremities exam: Present: normal inspection, full ROM, normal capillary refill. Absent: tenderness, pedal edema, joint swelling, calf tenderness - Back Exam Back exam: Present: normal inspection, full ROM. Absent: CVA tenderness (R), CVA tenderness (L) - Neurological Exam Neurological exam: Present: alert, oriented X3, CN II-XII intact, normal gait, reflexes normal. Absent: motor sensory deficit - Psychiatric Psychiatric exam: Present: normal mood - Skin Skin exam: Present: warm, intact, normal color ED Course Vital Signs 01/18/20 01/18/20 11:52 12:05 Pulse Rate 63 Respiratory 17 Rate Blood Pressure 134/62 [Right] O2 Sat by Pulse 100 100 Oximetry ISAAC score - Isaac Score Age > 65: (0) No Aspirin use within the Past 7 Days: (0) No 3 or more CAD Risk Factors: (0) No 2 or more Angina events in past 24 hrs: (0) No Known CAD with more than 50% Stenosis: (0) No Elevated Cardiac Markers: (0) No ST Deviation Greater than 0.5mm: (0) No ISAAC Score: 0 ED Medical Decision Making - Lab Data Result diagrams: 01/18/20 11:46 01/18/20 11:50 - EKG Data -: EKG Interpreted by [place] EKG shows normal: sinus rhythm - EKG Data Interpretation: no acute changes - Radiology Data Radiology results: report reviewed - Medical Decision Making Patient is 64 years old female with history of congestive heart failure. Patient brought to the emergency room via EMS from home for evaluation of left sided chest pain started yesterday. Patient described her pain as dullness and heaviness sometimes with no radiation. Patient stated that pain is intermittent. Patient denied any shortness of breath, cough, fever or chills. Patient was admitted here last month and found to be in acute congestive heart failure. Patient had a normal coronary artery cardiac cath in 2012. EKG shows sinus rhythm with occasional PVCs but there is no ST elevation. Chest x-ray is unremarkable. Labs reviewed and is unremarkable including first set of troponin. I discussed the patient with Dr. Gallagher, he advised to admit the patient to Dr. Bourne. Critical care attestation.: If time is entered above; I have spent that time in minutes in the direct care of this critically ill patient, excluding procedure time. ED Disposition Clinical Impression: Chest pain Disposition: [id number] OP ADMIT IP TO THIS HOSP Is pt being admited?: Yes Condition: Stable Instructions: Chest Pain (ED)
--- NOTE | 2020-01-18 12:13 | XRay Report ---
CHEST 1 VIEW INDICATION: Chest Pain. COMPARISON: 12/10/2019 FINDINGS: Support devices: None. Heart: Within normal limits. Lungs/Pleura: No acute air space or interstitial disease. Additional findings: None. IMPRESSION: No acute findings. Volume overload/CHF has resolved since the previous exam. Signer Name: Jayme Holm Jr, MD Signed: 01/18/2020 12:08 PM Workstation Name: [id number]
[2020-01-18 12:48] LABS: Basophils % (Auto) 0.4 % (0.0-1.8); Eosinophils # (Auto) 0.1 K/mm3 (0.0-0.4); Eosinophils % (Auto) 1.9 % (0.0-4.3); Hematocrit 40.1 % (30.3-42.9); Hemoglobin 13.2 gm/dl (10.1-14.3); Lymphocytes # (Auto) 2.9 K/mm3 (1.2-5.4); Lymphocytes % (Auto) 43.1 % (13.4-35.0); Mean Corpuscular HGB Conc 33 % (30-34); Mean Corpuscular Volume 95 fl (79-97); Monocytes # (Auto) 0.4 K/mm3 (0.0-0.8); Monocytes % (Auto) 6.4 % (0.0-7.3); Platelet Count 216 K/mm3 (140-440); Red Blood Count 4.23 M/mm3 (3.65-5.03); Red Cell Distribution Width 14.3 % (13.2-15.2)
[2020-01-18 12:55] LABS: INR 1.06 (0.87-1.13)
[2020-01-18 12:56] LABS: Partial Thromboplastin Time 29.3 Sec. (24.2-36.6)
[2020-01-18 13:22] LABS: Alanine Aminotransferase 23 units/L (7-56); Albumin 4.3 g/dL (3.9-5); BUN/Creatinine Ratio 26; Bilirubin,Direct < 0.2 mg/dL (0-0.2); Blood Urea Nitrogen 21 mg/dL (7-17); Calcium 9.9 mg/dL (8.4-10.2); Hemolysis Index 22
[2020-01-18] MEDS ORDERED: NITROGLYCERIN 0.4 MG TAB SUBL SL PRN (14:10)
--- NOTE | 2020-01-18 14:30 | Consultation ---
History of Present Illness Consult date: 01/18/20 Requesting physician: REBECA TALBOT Consult reason: chest pain History of present illness: The pt is a 64 YO female with a past medical history of NICMP, normal coronaries via C 2012, chronic HFrEF, mod to severe MR, HTN, HLP. She is followed in our office by Dr. Lewis. She presented with c/o chest pain since yesterday morning. She describes her chest pain as an intermittent, nonexertional, left- sided aching and "pounding" pain which became stabbing pain today. The pain sometimes radiates into her left shoulder. Pt is also experiencing some reproducible left-sided chest pain with deep inspiration and with palpation of the chest wall. She denies any edema, SOB, palpitations, n/v, diaphoresis, dizziness or syncope. She admits to orthopnea which is chronic and unchanged from baseline. She reports compliance with her home medication regimen. On evaluation, she is noted to be in NSR with bigeminy and trigeminy. Lexiscan MPI stress test done 12/12/2019 was negative for ischemia; EF 25%. tte done 12/10/2019 showed EF 15-20%, LA mild to mod dilated, mild AR, mod to severe MR, mild TR, RVSP 41mmHg. LHC done 2012 at [facility] normal coronaries and normal lv function. Past History Past Medical History: other (as per HPI) Medications and Allergies Allergies Allergy/AdvReac Type Severity Reaction Status Date / Time morphine Allergy HIVES, Verified 01/18/20 15:50 ITCH, CHEST PAIN, BURNING Sulfa (Sulfonamide Allergy HIVES, Verified 01/18/20 15:50 Antibiotics) ITCH,CHEST PAIN, BURNING tramadol Allergy Rash, Verified 07/14/13 10:15 HIVES, ITCH,CHEST PAIN, BURNING Home Medications Medication Instructions Recorded Confirmed Last Taken Type Digoxin 125 mcg PO DAILY #30 tablet 12/13/19 01/18/20 Unknown Rx Lisinopril [Zestril] 5 mg PO DAILY #30 tablet 12/13/19 01/18/20 Unknown Rx Potassium Chloride [K-Dur] 20 meq PO BID #60 tab 12/13/19 01/18/20 01/18/20 Rx Spironolactone [Aldactone] 25 mg PO QDAY #30 tablet 12/13/19 01/18/20 01/18/20 Rx carvediloL [Coreg] 3.125 mg PO BID #60 tablet 12/13/19 01/18/20 01/18/20 Rx Furosemide [Lasix TAB] 20 mg PO QDAY 01/18/20 01/18/20 Unknown History Active Meds: Active Medications Carvedilol (Coreg) 3.125 mg PO BID [facility] Digoxin (Lanoxin) 0.125 mg PO DAILY@1700 [facility] Furosemide (Lasix) 20 mg PO DAILY@0600 [facility] Lisinopril (Zestril) 5 mg PO DAILY [facility] Nitroglycerin (Nitrostat) 0.4 mg SL Q5M PRN PRN Reason: Chest Pain Sodium Chloride (Sodium Chloride Flush Syringe 10 Ml) 10 ml IV PRN PRN PRN Reason: LINE FLUSH Spironolactone (Aldactone) 25 mg PO QDAY [facility] Review of Systems Constitutional: no weight loss, no weight gain, no fever, no chills, no sweats Ears, nose, mouth and throat: no ear pain, no nose pain, no sinus pressure, no sinus pain Cardiovascular: chest pain, orthopnea (chronic), no palpitations, no rapid/irregular heart beat, no edema, no syncope, no lightheadedness, no shortness of breath, no dyspnea on exertion, no high blood pressure, no leg edema Respiratory: no cough, no shortness of breath, no dyspnea on exertion, no congestion, no wheezing, no pain on inspiration Gastrointestinal: no abdominal pain, no nausea, no vomiting, no diarrhea, no constipation, no change in bowel habits Genitourinary Female: no pelvic pain, no flank pain, no dysuria, no urinary frequency, no urgency Musculoskeletal: no neck stiffness, no neck pain, no shooting arm pain, no arm numbness/tingling, no low back pain, no shooting leg pain Integumentary: no rash, no pruritis, no redness, no sores, no wounds Neurological: no head injury, no paralysis, no weakness, no parathesias, no numbness, no tingling, no seizures, no syncope Psychiatric: no anxiety Endocrine: no cold intolerance, no heat intolerance Hematologic/Lymphatic: no easy bruising Allergic/Immunologic: no urticaria Physical Examination Vital Signs Pulse Ox 100 08/12/20 11:52 General appearance: no acute distress HEENT: Positive: PERRL, Normocephaly, Mucus Membranes Moist Neck: Positive: neck supple, trachea midline Cardiac: Positive: Reg Rate and Rhythm, S1/S2, Systolic Murmur Lungs: Positive: Decreased Breath Sounds Neuro: Positive: Grossly Intact Abdomen: Negative: Tender Skin: Negative: Rash Musculoskeletal: No Pain Extremities: Absent: edema Results 01/19/20 07:08 01/19/20 07:08 Cardiac Enzymes 01/18/20 Range/Units 11:50 AST 25 (5-40) units/L Coagulation 01/18/20 Range/Units 11:50 PT 14.0 (12.2-14.9) Sec. INR 1.06 (0.87-1.13) APTT 29.3 (24.2-36.6) Sec. CBC 01/18/20 Range/Units 11:46 WBC 6.8 (4.5-11.0) K/mm3 RBC 4.23 (3.65-5.03) M/mm3 Hgb 13.2 (10.1-14.3) gm/dl Hct 40.1 (30.3-42.9) % Plt Count 216 (140-440) K/mm3 Lymph # 2.9 (1.2-5.4) K/mm3 Centre # 0.4 (0.0-0.8) K/mm3 Eos # 0.1 (0.0-0.4) K/mm3 Baso # 0.0 (0.0-0.1) K/mm3 Comprehensive Metabolic Panel 01/18/20 Range/Units 11:50 Sodium 135 L (137-145) mmol/L Potassium 4.6 (3.6-5.0) mmol/L Chloride 100.7 (98-107) mmol/L Carbon Dioxide 19 L (22-30) mmol/L BUN 21 H (7-17) mg/dL Creatinine 0.8 (0.6-1.2) mg/dL Glucose 99 (65-100) mg/dL Calcium 9.9 (8.4-10.2) mg/dL Direct Bilirubin < 0.2 (0-0.2) mg/dL Indirect Bilirubin 0.1 mg/dL AST 25 (5-40) units/L ALT 23 (7-56) units/L Alkaline Phosphatase 55 (35-129) units/L Total Protein 8.1 (6.3-8.2) g/dL Albumin 4.3 (3.9-5) g/dL - Imaging and Cardiology Echo: report reviewed (12/10/2019 showed EF 15-20%, LA mild to mod dilated, mild AR, mod to severe MR, mild TR, RVSP 41mmHg. ) EKG: report reviewed, image reviewed EKG interpretations - Telemetry EKG Rhythm: Sinus Rhythm - EKG Sinus rhythms and dysrhythmias: sinus rhythm Ventricular dysrhythmias: ventricular premature com Assessment and Plan Pt presents with atypical chest pain and bigeminy/trigeminy. Sheila negative for AMI x 1, ECG with no acute ischemic changes. Lexiscan MPI stress test done 12/12/2019 was negative for ischemia; EF 25%. tte done 12/10/2019 showed EF 15-20%, LA mild to mod dilated, mild AR, mod to severe MR, mild TR, RVSP 41mmHg. LHC done 2012 at [facility] normal coronaries and normal lv function. No current clinical evidence of acutely decompensated HF. Optimize medical management of PVCs and consider NSAID per primary for reproducible chest pain. Will follow. The patient has been seen in conjunction with Dr. Mohan Aragon who agrees with the assessment and plan of care. - Patient Problems (1) Chest pain Current Visit: Yes Status: Acute (2) PVCs (premature ventricular contractions) Current Visit: Yes Status: Acute (3) Chronic HFrEF (heart failure with reduced ejection fraction) Current Visit: Yes Status: Chronic (4) Nonischemic cardiomyopathy Current Visit: Yes Status: Chronic (5) Mitral regurgitation Current Visit: Yes Status: Chronic (6) Hypertension Current Visit: Yes Status: Chronic Qualifiers: Hypertension type: essential hypertension Qualified Code(s): I10 - Essential (primary) hypertension (7) Hyperlipidemia Current Visit: Yes Status: Chronic
--- NOTE | 2020-01-18 15:03 | History and Physical Report ---
<LIZZ CAST - Last Filed: 01/18/20 15:43> History of Present Illness Date of examination: 01/18/20 Date of admission: 01/18/20 13:32 Chief complaint: CP x 1 day History of present illness: This is a 64 year old female with HFrEF (EF 25%), HTN, and cardiomyopathy presents to [facility] with intermittent left sided chest pain with intermittent radiation to her left shoulder which started yesterday and was dull and heavy but became sharp this morning. She also complains of palpitations. Of note she was recently discharged in December with a diagnosis of HFrEF. She does endorse orthopnea but states that is not new. She denies any SOB, cough, dizziness, loss of consciousness, nausea or vomiting or diarrhea, weight loss, hemoptysis, fatigue, fevers, chills or edema. She denies any recent contact with sick individuals, travel, or known exposure to COVID-19. She also states that she has had sharp left-sided pain on the back of her head for a couple weeks and denies any recent falls. Work up in the emergency department reveals slight hy ponatremia (Na 135) and her chest x-ray has no acute findings. At the time of my exam she is in normal sinus rhythm with bigeminy and trigeminy. She is going to be admitted under the hospitalist service for work-up of her chest pain and cardiology was consulted. She is known to Dr. Lewis. Previous visits have been reviewed, home medications have been reconciled and advanced care planning was conducted in the emergency department. Past History Past Medical History: heart failure, hypertension Past Surgical History: Other ( left foot surgery) Social history: full code. denies: smoking, alcohol abuse, prescription drug abuse, IV drug use Family history: cancer Medications and Allergies Allergies Allergy/AdvReac Type Severity Reaction Status Date / Time morphine Allergy HIVES, Verified 01/18/20 15:50 ITCH, CHEST PAIN, BURNING Sulfa (Sulfonamide Allergy HIVES, Verified 01/18/20 15:50 Antibiotics) ITCH,CHEST PAIN, BURNING tramadol Allergy Rash, Verified 07/14/13 10:15 HIVES, ITCH,CHEST PAIN, BURNING Home Medications Medication Instructions Recorded Confirmed Last Taken Type Digoxin 125 mcg PO DAILY #30 tablet 12/13/19 01/18/20 Unknown Rx Lisinopril [Zestril] 5 mg PO DAILY #30 tablet 12/13/19 01/18/20 Unknown Rx Potassium Chloride [K-Dur] 20 meq PO BID #60 tab 12/13/19 01/18/20 01/18/20 Rx Spironolactone [Aldactone] 25 mg PO QDAY #30 tablet 12/13/19 01/18/20 01/18/20 Rx carvediloL [Coreg] 3.125 mg PO BID #60 tablet 12/13/19 01/18/20 01/18/20 Rx Furosemide [Lasix TAB] 20 mg PO QDAY 01/18/20 01/18/20 Unknown History Active Meds: Active Medications Carvedilol (Coreg) 3.125 mg PO BID [facility] Digoxin (Lanoxin) 0.125 mg PO DAILY@1700 [facility] Furosemide (Lasix) 20 mg PO DAILY@0600 [facility] Ketorolac Tromethamine (Toradol) 15 mg IV ONCE ONE Stop: 01/18/20 16:01 Lisinopril (Zestril) 5 mg PO DAILY [facility] Nitroglycerin (Nitrostat) 0.4 mg SL Q5M PRN PRN Reason: Chest Pain Sodium Chloride (Sodium Chloride Flush Syringe 10 Ml) 10 ml IV PRN PRN PRN Reason: LINE FLUSH Spironolactone (Aldactone) 25 mg PO QDAY [facility] Review of Systems Constitutional: no weight loss, no weight gain, no fever, no chills, no sweats, no night sweats, no anorexia, no fatigue, no weakness, no lethargy Ears, nose, mouth and throat: no ear pain, no ear discharge, no tinnitis, no decreased hearing, no nose pain, no nasal congestion, no nasal discharge, no sinus pressure, no sinus pain, no epistaxis Cardiovascular: chest pain, orthopnea, palpitations, no rapid/irregular heart beat, no edema, no syncope, no lightheadedness, no shortness of breath, no dyspnea on exertion, no high blood pressure, no leg edema Respiratory: no cough, no cough with sputum, no excessive sputum, no hemoptysis, no shortness of breath, no sleep apnea Gastrointestinal: no abdominal pain, no nausea, no vomiting, no diarrhea, no constipation, no change in bowel habits Genitourinary Female: no dyspareunia, no dysmenorrhea, no pelvic pain, no urinary frequency, no urgency Rectal: incontinence Musculoskeletal: no neck stiffness, no neck pain, no shooting arm pain, no arm numbness/tingling, no low back pain, no shooting leg pain, no leg numbness/tingling, no frequent falls Integumentary: no pruritis, no redness, no sores, no wounds, no blisters Neurological: headaches, no head injury, no transient paralysis, no paralysis, no weakness, no parathesias, no numbness, no tingling, no seizures, no syncope, no tremors, no vertigo Psychiatric: no anxiety, no memory loss, no change in sleep habits, no suicidal ideation Endocrine: no cold intolerance, no heat intolerance, no polyphagia, no excessive thirst Hematologic/Lymphatic: no easy bruising, no easy bleeding Allergic/Immunologic: no urticaria, no allergic rhinitis, no wheezing Exam - Constitutional Vitals: Temp Pulse Resp BP Pulse Ox 98.3 F 79 12 94/58 98 01/18/20 12:05 01/18/20 14:43 01/18/20 14:43 01/18/20 14:43 01/18/20 14:43 General appearance: Present: no acute distress - EENT Eyes: Present: PERRL, EOM intact ENT: hearing intact, clear oral mucosa - Neck Neck: Present: normal ROM - Respiratory Respiratory effort: normal Respiratory: bilateral: CTA - Cardiovascular Rhythm: regular Heart Sounds: Present: S1 & S2, systolic murmur. Absent: diastolic murmur - Extremities Extremities: no ischemia, pulses intact, pulses symmetrical, No edema, normal temperature, normal color, Full ROM Peripheral Pulses: within normal limits - Abdominal General gastrointestinal: Present: soft, non-tender, non-distended, normal bowel sounds - Integumentary Integumentary: Present: clear, warm, dry - Musculoskeletal Musculoskeletal: strength equal bilaterally - Psychiatric Psychiatric: appropriate mood/affect, cooperative - Neurologic Neurologic: CNII-XII intact, no focal deficits, moves all extremities - Allied Health Allied health notes reviewed: nursing HEART Score - HEART Score EKG: Non-specific Age: 45-65 Risk factors: > 3 risk factors or hx of atherosclerotic disease Troponin: Troponin T < 0.010 ng/mL (0.00-0.029) 01/18/20 11:50 Troponin: < normal limit - Critical Actions Critical Actions: 4-6 pts:12-16.6% risk of adverse cardiac event. Should be admitted Results - Labs CBC & Chem 7: 01/18/20 11:46 01/18/20 11:50 Labs: Laboratory Last Values WBC 6.8 K/mm3 (4.5-11.0) 01/18/20 11:46 RBC 4.23 M/mm3 (3.65-5.03) 01/18/20 11:46 Hgb 13.2 gm/dl (10.1-14.3) 01/18/20 11:46 Hct 40.1 % (30.3-42.9) 01/18/20 11:46 MCV 95 fl (79-97) 01/18/20 11:46 MCH 31 pg (28-32) 01/18/20 11:46 MCHC 33 % (30-34) 01/18/20 11:46 RDW 14.3 % (13.2-15.2) 01/18/20 11:46 Plt Count 216 K/mm3 (140-440) 01/18/20 11:46 Lymph % (Auto) 43.1 % (13.4-35.0) H 01/18/20 11:46 [place] % (Auto) 6.4 % (0.0-7.3) 01/18/20 11:46 Eos % (Auto) 1.9 % (0.0-4.3) 01/18/20 11:46 Baso % (Auto) 0.4 % (0.0-1.8) 01/18/20 11:46 Lymph # 2.9 K/mm3 (1.2-5.4) 01/18/20 11:46 [place] # 0.4 K/mm3 (0.0-0.8) 01/18/20 11:46 Eos # 0.1 K/mm3 (0.0-0.4) 01/18/20 11:46 Baso # 0.0 K/mm3 (0.0-0.1) 01/18/20 11:46 Seg Neutrophils % 48.2 % (40.0-70.0) 01/18/20 11:46 Seg Neutrophils # 3.3 K/mm3 (1.8-7.7) 01/18/20 11:46 PT 14.0 Sec. (12.2-14.9) 01/18/20 11:50 INR 1.06 (0.87-1.13) 01/18/20 11:50 APTT 29.3 Sec. (24.2-36.6) 01/18/20 11:50 Sodium 135 mmol/L (137-145) L 01/18/20 11:50 Potassium 4.6 mmol/L (3.6-5.0) 01/18/20 11:50 Chloride 100.7 mmol/L (98-107) 01/18/20 11:50 Carbon Dioxide 19 mmol/L (22-30) L 01/18/20 11:50 Anion Gap 20 mmol/L 01/18/20 11:50 BUN 21 mg/dL (7-17) H 01/18/20 11:50 Creatinine 0.8 mg/dL (0.6-1.2) 01/18/20 11:50 Estimated GFR > 60 ml/min 01/18/20 11:50 BUN/Creatinine Ratio 26 % 01/18/20 11:50 Glucose 99 mg/dL (65-100) 01/18/20 11:50 Calcium 9.9 mg/dL (8.4-10.2) 01/18/20 11:50 Total Bilirubin 0.30 mg/dL (0.1-1.2) 01/18/20 11:50 Direct Bilirubin < 0.2 mg/dL (0-0.2) 01/18/20 11:50 Indirect Bilirubin 0.1 mg/dL 01/18/20 11:50 AST 25 units/L (5-40) 01/18/20 11:50 ALT 23 units/L (7-56) 01/18/20 11:50 Alkaline Phosphatase 55 units/L (35-129) 01/18/20 11:50 Troponin T < 0.010 ng/mL (0.00-0.029) 01/18/20 11:50 NT-Pro-B Natriuret Pep 390.4 pg/mL (0-900) 01/18/20 11:50 Total Protein 8.1 g/dL (6.3-8.2) 01/18/20 11:50 Albumin 4.3 g/dL (3.9-5) 01/18/20 11:50 Albumin/Globulin Ratio 1.1 % 01/18/20 11:50 - Imaging and Cardiology Chest x-ray: report reviewed, image reviewed - Diagnostic Impressions Diagnostic Impressions: 01/17 CXR with no acute findings Pozo/IV: IV Catheter Type [Left INT / Saline Lock Antecubital] Assessment and Plan VTE prophylaxis?: Chemical, Mechanical Plan of care discussed with patient/family: Yes - Patient Problems (1) Chest pain Current Visit: Yes Status: Acute Plan to address problem: - EKG PRN - Sublingual Nitroglycerin PRN - on Telemetry - Check Mg level - Cardiology consult, appreciate recommendations - Serial troponins ordered in ED - 12/12/2019 Lexiscan MPI stress test was negative for ischemia; EF 25%. - 12/10/19 TTE showed EF 15-20%, LA mild to mod dilated, mild AR, mod to severe MR, mild TR - 2012 Left heart cath showed normal coronaries and normal LV function (2) Chronic HFrEF (heart failure with reduced ejection fraction) Current Visit: Yes Status: Chronic Plan to address problem: - 12/12/2019 Lexiscan MPI stress test was negative for ischemia; EF 25%. - 12/10/19 TTE showed EF 15-20%, LA mild to mod dilated, mild AR, mod to severe MR, mild TR - 2012 Left heart cath showed normal coronaries and normal LV function - Cardiology consult, appreciate recommendations - Cardiac diet - Restarted Coreg, Sprinolactone, Lasix, and Digoxin - Digoxin level check - 01/17 BNP 390.4 - Daily weights - Avoid IVF in setting of EF 25% - Consider fluid restrictions per cardiology (3) Hypertension Current Visit: Yes Status: Chronic Qualifiers: Hypertension type: essential hypertension Qualified Code(s): I10 - Essential (primary) hypertension Plan to address problem: - Restarted Coreg, Sprinolactone, Lasix - BP monitoring per protocol (4) Hyperlipidemia Current Visit: Yes Status: Chronic Plan to address problem: - Lipid panel pending - Statin therapy started (5) DVT prophylaxis Current Visit: No Status: Acute Plan to address problem: - SCDs to BLE while in bed - Irais may <REBECA TALBOT - Last Filed: 01/19/20 06:10> History of Present Illness Date of admission: 01/18/20 13:32 Medications and Allergies Active Meds: Active Medications Acetaminophen (Tylenol) 650 mg PO Q4H PRN PRN Reason: Pain MILD(1-3)/Fever >100.5/HUERTA Atorvastatin Calcium (Lipitor) 20 mg PO QHS [facility] Last Admin: 01/18/20 21:24 Dose: 20 mg Documented by: Carvedilol (Coreg) 3.125 mg PO BID [facility] Last Admin: 01/18/20 21:24 Dose: 3.125 mg Documented by: Digoxin (Lanoxin) 0.125 mg PO DAILY@1700 [facility] Enoxaparin Sodium (Enoxaparin) 40 mg SUB-Q QDAY@1000 [facility] Furosemide (Lasix) 20 mg PO DAILY@0600 [facility] Last Admin: 01/19/20 05:44 Dose: 20 mg Documented by: Lisinopril (Zestril) 5 mg PO DAILY [facility] Nitroglycerin (Nitrostat) 0.4 mg SL Q5M PRN PRN Reason: Chest Pain Ondansetron HCl (Zofran) 4 mg IV Q8H PRN PRN Reason: Nausea And Vomiting Sodium Chloride (Sodium Chloride Flush Syringe 10 Ml) 10 ml IV PRN PRN PRN Reason: LINE FLUSH Last Admin: 01/18/20 21:24 Dose: 10 ml Documented by: Spironolactone (Aldactone) 25 mg PO QDAY [facility] Exam - Constitutional Vitals: Temp Pulse Resp BP Pulse Ox 98.1 F 73 20 104/63 100 01/18/20 23:32 01/18/20 23:32 01/18/20 23:32 01/18/20 23:32 01/18/20 23:32 HEART Score - HEART Score Troponin: Troponin T < 0.010 ng/mL (0.00-0.029) 01/18/20 17:10 Results - Labs CBC & Chem 7: 01/18/20 11:46 01/18/20 11:50 Labs: Laboratory Last Values WBC 6.8 K/mm3 (4.5-11.0) 01/18/20 11:46 RBC 4.23 M/mm3 (3.65-5.03) 01/18/20 11:46 Hgb 13.2 gm/dl (10.1-14.3) 01/18/20 11:46 Hct 40.1 % (30.3-42.9) 01/18/20 11:46 MCV 95 fl (79-97) 01/18/20 11:46 MCH 31 pg (28-32) 01/18/20 11:46 MCHC 33 % (30-34) 01/18/20 11:46 RDW 14.3 % (13.2-15.2) 01/18/20 11:46 Plt Count 216 K/mm3 (140-440) 01/18/20 11:46 Lymph % (Auto) 43.1 % (13.4-35.0) H 01/18/20 11:46 [place] % (Auto) 6.4 % (0.0-7.3) 01/18/20 11:46 Eos % (Auto) 1.9 % (0.0-4.3) 01/18/20 11:46 Baso % (Auto) 0.4 % (0.0-1.8) 01/18/20 11:46 Lymph # 2.9 K/mm3 (1.2-5.4) 01/18/20 11:46 [place] # 0.4 K/mm3 (0.0-0.8) 01/18/20 11:46 Eos # 0.1 K/mm3 (0.0-0.4) 01/18/20 11:46 Baso # 0.0 K/mm3 (0.0-0.1) 01/18/20 11:46 Seg Neutrophils % 48.2 % (40.0-70.0) 01/18/20 11:46 Seg Neutrophils # 3.3 K/mm3 (1.8-7.7) 01/18/20 11:46 PT 14.0 Sec. (12.2-14.9) 01/18/20 11:50 INR 1.06 (0.87-1.13) 01/18/20 11:50 APTT 29.3 Sec. (24.2-36.6) 01/18/20 11:50 Sodium 135 mmol/L (137-145) L 01/18/20 11:50 Potassium 4.6 mmol/L (3.6-5.0) 01/18/20 11:50 Chloride 100.7 mmol/L (98-107) 01/18/20 11:50 Carbon Dioxide 19 mmol/L (22-30) L 01/18/20 11:50 Anion Gap 20 mmol/L 01/18/20 11:50 BUN 21 mg/dL (7-17) H 01/18/20 11:50 Creatinine 0.8 mg/dL (0.6-1.2) 01/18/20 11:50 Estimated GFR > 60 ml/min 01/18/20 11:50 BUN/Creatinine Ratio 26 % 01/18/20 11:50 Glucose 99 mg/dL (65-100) 01/18/20 11:50 Calcium 9.9 mg/dL (8.4-10.2) 01/18/20 11:50 Magnesium 1.90 mg/dL (1.7-2.3) 01/18/20 17:10 Total Bilirubin 0.30 mg/dL (0.1-1.2) 01/18/20 11:50 Direct Bilirubin < 0.2 mg/dL (0-0.2) 01/18/20 11:50 Indirect Bilirubin 0.1 mg/dL 01/18/20 11:50 AST 25 units/L (5-40) 01/18/20 11:50 ALT 23 units/L (7-56) 01/18/20 11:50 Alkaline Phosphatase 55 units/L (35-129) 01/18/20 11:50 Troponin T < 0.010 ng/mL (0.00-0.029) 01/18/20 17:10 NT-Pro-B Natriuret Pep 390.4 pg/mL (0-900) 01/18/20 11:50 Total Protein 8.1 g/dL (6.3-8.2) 01/18/20 11:50 Albumin 4.3 g/dL (3.9-5) 01/18/20 11:50 Albumin/Globulin Ratio 1.1 % 01/18/20 11:50 Triglycerides 42 mg/dL (2-149) 01/18/20 17:10 Cholesterol 161 mg/dL (50-199) 01/18/20 17:10 LDL Cholesterol Direct 97 mg/dL (50-130) 01/18/20 17:10 HDL Cholesterol 61 mg/dL (40-59) H 01/18/20 17:10 Cholesterol/HDL Ratio 2.63 % 01/18/20 17:10 TSH 0.439 mlU/mL (0.270-4.200) 01/18/20 17:10 Free T4 1.30 ng/dL (0.76-1.46) 01/18/20 17:10 Digoxin 0.6 ng/mL (0.9-2.0) L 01/18/20 17:10 Pozo/IV: Voiding Method Toilet IV Catheter Type [Left INT / Saline Lock Antecubital] Assessment and Plan Assessment and plan: I saw and evaluated the patient. I agree with the findings and the plan of care as documented in the Nurse Practitioner's~note, with the following corrections and additions.
[2020-01-18] MEDS ORDERED: ACETAMINOPHEN 325 MG TAB PO PRN (15:40)
[2020-01-18] MEDS ORDERED: ONDANSETRON 4 MG/2 ML INJ IV PRN (15:40)
[2020-01-18] MEDS ORDERED: KETOROLAC 30 MG/1 ML INJ IV ONE (16:00)
[2020-01-18 17:45] LABS: Chol/HDL Ratio 2.63 %
[2020-01-18] MEDS: carvediloL 3.125 MG TAB PO SCH (21:24)
[2020-01-19] MEDS: FUROSEMIDE 20 MG TAB PO SCH (05:44)
[2020-01-19 07:43] LABS: Basophils % (Auto) 0.5 % (0.0-1.8); Eosinophils # (Auto) 0.2 K/mm3 (0.0-0.4); Eosinophils % (Auto) 2.3 % (0.0-4.3); Hematocrit 39.8 % (30.3-42.9); Lymphocytes # (Auto) 3.2 K/mm3 (1.2-5.4); Lymphocytes % (Auto) 48.3 % (13.4-35.0); Mean Corpuscular HGB Conc 33 % (30-34); Mean Corpuscular Volume 95 fl (79-97); Monocytes # (Auto) 0.4 K/mm3 (0.0-0.8); Monocytes % (Auto) 6.4 % (0.0-7.3); Platelet Count 205 K/mm3 (140-440); Red Cell Distribution Width 14.2 % (13.2-15.2)
[2020-01-19 07:57] LABS: Blood Urea Nitrogen 16 mg/dL (7-17); Calcium 9.6 mg/dL (8.4-10.2); Hemolysis Index 7
[2020-01-19 08:00] LABS: BUN/Creatinine Ratio 23
[2020-01-19] MEDS ORDERED: FUROSEMIDE 40 MG TAB PO SCH (10:00)
[2020-01-19] MEDS: ENOXAPARIN 40 MG/0.4 ML INJ SUB-Q SCH (10:00)
[2020-01-19] MEDS ORDERED: ENOXAPARIN 30 MG/0.3 ML INJ SUB-Q SCH (10:00)
[2020-01-19] MEDS: LISINOPRIL 5 MG TAB PO SCH (10:04)
[2020-01-19] MEDS: SPIRONOLACTONE 25 MG TAB PO SCH (10:04)
[2020-01-19] MEDS: carvediloL 3.125 MG TAB PO SCH ×2 (10:04→21:29)
--- NOTE | 2020-01-19 11:38 | Progress Note ---
Assessment and Plan Pt presents with atypical chest pain and bigeminy/trigeminy. AMI r/o. Lexiscan MPI stress test done 12/12/2019 was negative for ischemia; EF 25%. tte done 12/10/2019 showed EF 15-20%, LA mild to mod dilated, mild AR, mod to severe MR, mild TR, RVSP 41mmHg. LHC done 2012 at [facility] normal coronaries and normal lv function. No current clinical evidence of acutely decompensated HF. Pt states she is feeling better today, still with intermittent chest pain, anxious. Will proceed with coronary angiography in AM for definitive diagnosis. Indications, potential risks and benefits reviewed with pt and she is agreeable to proceed with LHC. NPO after MN. The patient has been seen in conjunction with Dr. Mohan Aragon who agrees with the assessment and plan of care. - Patient Problems (1) Chest pain Current Visit: Yes Status: Acute (2) PVCs (premature ventricular contractions) Current Visit: Yes Status: Acute (3) Chronic HFrEF (heart failure with reduced ejection fraction) Current Visit: Yes Status: Chronic (4) Nonischemic cardiomyopathy Current Visit: Yes Status: Chronic (5) Mitral regurgitation Current Visit: Yes Status: Chronic (6) Hypertension Current Visit: Yes Status: Chronic Qualifiers: Hypertension type: essential hypertension Qualified Code(s): I10 - Essential (primary) hypertension (7) Hyperlipidemia Current Visit: Yes Status: Chronic Subjective Date of service: 01/19/20 Principal diagnosis: cp Interval history: pt resting in bed, states she is feeling better, still with intermittent chest pain, anxious. tele reviewed - in SR with infrequent PVCs overnight. Objective Last Vital Signs Temp 97.9 F 01/19/20 08:14 Pulse 48 L 01/19/20 10:04 Resp 18 01/19/20 08:14 BP 103/83 01/19/20 10:04 Pulse Ox 100 01/19/20 09:59 - Physical Examination General: No Apparent Distress HEENT: Positive: PERRL, Normocephaly, Mucus Membranes Moist Neck: Positive: neck supple, trachea midline Cardiac: Positive: Reg Rate and Rhythm, S1/S2, Systolic Murmur Lungs: Positive: Decreased Breath Sounds Neuro: Positive: Grossly Intact Abdomen: Negative: Tender Skin: Negative: Rash Musculoskeletal: No Pain Extremities: Absent: edema - Labs and Meds Cardiac Enzymes 01/18/20 Range/Units 11:50 AST 25 (5-40) units/L Coagulation 01/18/20 Range/Units 11:50 PT 14.0 (12.2-14.9) Sec. INR 1.06 (0.87-1.13) APTT 29.3 (24.2-36.6) Sec. Lipids 01/18/20 Range/Units 17:10 Triglycerides 42 (2-149) mg/dL Cholesterol 161 (50-199) mg/dL HDL Cholesterol 61 H (40-59) mg/dL Cholesterol/HDL Ratio 2.63 % CBC 01/18/20 01/19/20 Range/Units 11:46 07:08 WBC 6.8 6.7 (4.5-11.0) K/mm3 RBC 4.23 4.20 (3.65-5.03) M/mm3 Hgb 13.2 13.0 (10.1-14.3) gm/dl Hct 40.1 39.8 (30.3-42.9) % Plt Count 216 205 (140-440) K/mm3 Lymph # 2.9 3.2 (1.2-5.4) K/mm3 [place] # 0.4 0.4 (0.0-0.8) K/mm3 Eos # 0.1 0.2 (0.0-0.4) K/mm3 Baso # 0.0 0.0 (0.0-0.1) K/mm3 Comprehensive Metabolic Panel 01/18/20 01/19/20 Range/Units 11:50 07:08 Sodium 135 L 138 (137-145) mmol/L Potassium 4.6 4.6 (3.6-5.0) mmol/L Chloride 100.7 101.7 (98-107) mmol/L Carbon Dioxide 19 L 24 (22-30) mmol/L BUN 21 H 16 (7-17) mg/dL Creatinine 0.8 0.7 (0.6-1.2) mg/dL Glucose 99 104 H (65-100) mg/dL Calcium 9.9 9.6 (8.4-10.2) mg/dL Direct Bilirubin < 0.2 (0-0.2) mg/dL Indirect Bilirubin 0.1 mg/dL AST 25 (5-40) units/L ALT 23 (7-56) units/L Alkaline Phosphatase 55 (35-129) units/L Total Protein 8.1 (6.3-8.2) g/dL Albumin 4.3 (3.9-5) g/dL - Imaging and Cardiology EKG: report reviewed, image reviewed Echo: report reviewed (12/10/2019 showed EF 15-20%, LA mild to mod dilated, mild AR, mod to severe MR, mild TR, RVSP 41mmHg. ) - Telemetry EKG Rhythm: Sinus Rhythm - EKG Sinus rhythms and dysrhythmias: sinus rhythm Ventricular dysrhythmias: ventricular premature com
[2020-01-19] MEDS ORDERED: SODIUM CHLORIDE 0.9% 500 ML 500 ML IV SCH (12:00)
--- NOTE | 2020-01-19 16:28 | Progress Note ---
Assessment and Plan - Patient Problems (1) Chest pain Current Visit: Yes Status: Acute Plan to address problem: - EKG PRN - Sublingual Nitroglycerin PRN - on Telemetry - 01/17 ma.9 - Cardiology consult, appreciate recommendations - Serial troponins have been < 0.01 - 12/12/2019 Lexiscan MPI stress test was negative for ischemia; EF 25%. - 12/10/19 TTE showed EF 15-20%, LA mild to mod dilated, mild AR, mod to severe MR, mild TR - 2012 Left heart cath showed normal coronaries and normal LV function - 01/19: Left heart cath planned. (2) Chronic HFrEF (heart failure with reduced ejection fraction) Current Visit: Yes Status: Chronic Plan to address problem: - 12/12/2019 Lexiscan MPI stress test was negative for ischemia; EF 25%. - 12/10/19 TTE showed EF 15-20%, LA mild to mod dilated, mild AR, mod to severe MR, mild TR - 2012 Left heart cath showed normal coronaries and normal LV function - Cardiology consult, appreciate recommendations - Cardiac diet - Restarted Coreg, Sprinolactone, Lasix, and Digoxin (held on 01/18 in light of SB and hypotension and received 500 normal saline bolus) - 01/17 Digoxin level 0.6 - 01/17 BNP 390.4 - Daily weights - [facility] planned by cardiology in the AM (3) Hypertension Current Visit: Yes Status: Chronic Qualifiers: Hypertension type: essential hypertension Qualified Code(s): I10 - [facility] (primary) hypertension Plan to address problem: - Restarted Coreg, Sprinolactone, Lasix (held 01/18 for hypotension) - 01/18 500 ml NS bolus - BP monitoring per protocol (4) Hyperlipidemia Current Visit: Yes Status: Chronic Plan to address problem: - 01/18 lipid panel: Cholesterol 161, LDL 97, HDL 61 - Statin therapy started (5) DVT prophylaxis Current Visit: No Status: Acute Plan to address problem: - SCDs to BLE while in bed - Lovenox subq History Interval history: This is a 64 year old female with HFrEF (EF 20-25%), HTN, and cardiomyopathy presents to [facility] with intermittent left sided chest pain with intermittent radiation to her left shoulder which started 01/16 and was dull and heavy but became sharp on 01/17. She also complains of palpitations. Of note she was recently discharged in December with a diagnosis of HFrEF. Work up in the emergency department reveals slight hyponatremia (Na 135) and her chest x-ray has no acute findings and she was in NSR with bigeminy and trigeminy in the emergency department. Dr. Lewis consulted as patient is familiar to him. This morning she complains of intermittent chest pains overnight however none this morning. This morning she she has sinus bradycardia on the quality assurance monitor chassis and she is hypotensive. Overnight her systolic blood pressures have been in the 80s and 90s and upon recheck this morning it was 103/83. Her morning medications have been held and she received a 500 mL normal saline bolus. Cardiology plans to conduct a left heart cath in the morning. Extensive heart failure education done at bedside by me and Dr. Lanza. 01/17: Plan for cardiac cath in a.m. and n.p.o. at midnight Hospitalist Physical - Constitutional Vitals: Temp Pulse Resp BP Pulse Ox 97.9 F 54 L 18 91/60 100 01/19/20 11:30 01/19/20 11:30 01/19/20 11:30 01/19/20 11:30 01/19/20 11:30 General appearance: Present: no acute distress - EENT Eyes: Present: PERRL ENT: hearing intact, clear oral mucosa - Neck Neck: Present: normal ROM - Respiratory Respiratory effort: normal Respiratory: bilateral: CTA - Cardiovascular Rhythm: regular Heart Sounds: Present: S1 & S2, systolic murmur - Extremities Extremities: no ischemia, pulses intact, pulses symmetrical, No edema, normal temperature, normal color, Full ROM Peripheral Pulses: within normal limits - Abdominal General gastrointestinal: soft, non-tender, non-distended, normal bowel sounds - Integumentary Integumentary: Present: clear, warm, dry - Psychiatric Psychiatric: appropriate mood/affect, cooperative - Neurologic Neurologic: CNII-XII intact, no focal deficits, moves all extremities, gait normal - Allied Health Allied health notes reviewed: nursing, social work, case management HEART Score - HEART Score EKG: Non-specific Age: 45-65 Risk factors: > 3 risk factors or hx of atherosclerotic disease Troponin: Troponin T < 0.010 ng/mL (0.00-0.029) 01/18/20 17:10 Troponin: < normal limit - Critical Actions Critical Actions: 4-6 pts:12-16.6% risk of adverse cardiac event. Should be admitted Results - Labs CBC & Chem 7: 01/19/20 07:08 01/19/20 07:08 Labs: Laboratory Last Values WBC 6.7 K/mm3 (4.5-11.0) 01/19/20 07:08 RBC 4.20 M/mm3 (3.65-5.03) 01/19/20 07:08 Hgb 13.0 gm/dl (10.1-14.3) 01/19/20 07:08 Hct 39.8 % (30.3-42.9) 01/19/20 07:08 MCV 95 fl (79-97) 01/19/20 07:08 MCH 31 pg (28-32) 01/19/20 07:08 MCHC 33 % (30-34) 01/19/20 07:08 RDW 14.2 % (13.2-15.2) 01/19/20 07:08 Plt Count 205 K/mm3 (140-440) 01/19/20 07:08 Lymph % (Auto) 48.3 % (13.4-35.0) H 01/19/20 07:08 Wallace % (Auto) 6.4 % (0.0-7.3) 01/19/20 07:08 Eos % (Auto) 2.3 % (0.0-4.3) 01/19/20 07:08 Baso % (Auto) 0.5 % (0.0-1.8) 01/19/20 07:08 Lymph # 3.2 K/mm3 (1.2-5.4) 01/19/20 07:08 Wallace # 0.4 K/mm3 (0.0-0.8) 01/19/20 07:08 Eos # 0.2 K/mm3 (0.0-0.4) 01/19/20 07:08 Baso # 0.0 K/mm3 (0.0-0.1) 01/19/20 07:08 Seg Neutrophils % 42.5 % (40.0-70.0) 01/19/20 07:08 Seg Neutrophils # 2.8 K/mm3 (1.8-7.7) 01/19/20 07:08 PT 14.0 Sec. (12.2-14.9) 01/18/20 11:50 INR 1.06 (0.87-1.13) 01/18/20 11:50 APTT 29.3 Sec. (24.2-36.6) 01/18/20 11:50 Sodium 138 mmol/L (137-145) 01/19/20 07:08 Potassium 4.6 mmol/L (3.6-5.0) 01/19/20 07:08 Chloride 101.7 mmol/L (98-107) 01/19/20 07:08 Carbon Dioxide 24 mmol/L (22-30) 01/19/20 07:08 Anion Gap 17 mmol/L 01/19/20 07:08 BUN 16 mg/dL (7-17) 01/19/20 07:08 Creatinine 0.7 mg/dL (0.6-1.2) 01/19/20 07:08 Estimated GFR > 60 ml/min 01/19/20 07:08 BUN/Creatinine Ratio 23 % 01/19/20 07:08 Glucose 104 mg/dL (65-100) H 01/19/20 07:08 Calcium 9.6 mg/dL (8.4-10.2) 01/19/20 07:08 Magnesium 1.90 mg/dL (1.7-2.3) 01/18/20 17:10 Total Bilirubin 0.30 mg/dL (0.1-1.2) 01/18/20 11:50 Direct Bilirubin < 0.2 mg/dL (0-0.2) 01/18/20 11:50 Indirect Bilirubin 0.1 mg/dL 01/18/20 11:50 AST 25 units/L (5-40) 01/18/20 11:50 ALT 23 units/L (7-56) 01/18/20 11:50 Alkaline Phosphatase 55 units/L (35-129) 01/18/20 11:50 Troponin T < 0.010 ng/mL (0.00-0.029) 01/18/20 17:10 NT-Pro-B Natriuret Pep 390.4 pg/mL (0-900) 01/18/20 11:50 Total Protein 8.1 g/dL (6.3-8.2) 01/18/20 11:50 Albumin 4.3 g/dL (3.9-5) 01/18/20 11:50 Albumin/Globulin Ratio 1.1 % 01/18/20 11:50 Triglycerides 42 mg/dL (2-149) 01/18/20 17:10 Cholesterol 161 mg/dL (50-199) 01/18/20 17:10 LDL Cholesterol Direct 97 mg/dL (50-130) 01/18/20 17:10 HDL Cholesterol 61 mg/dL (40-59) H 01/18/20 17:10 Cholesterol/HDL Ratio 2.63 % 01/18/20 17:10 TSH 0.439 mlU/mL (0.270-4.200) 01/18/20 17:10 Free T4 1.30 ng/dL (0.76-1.46) 01/18/20 17:10 Digoxin 0.6 ng/mL (0.9-2.0) L 01/18/20 17:10 Pozo/IV: Voiding Method Toilet IV Catheter Type [Left INT / Saline Lock Antecubital] Active Medications - Current Medications Current Medications: Generic Name Dose Route Start Last Admin Trade Name Freq PRN Reason Stop Dose Admin Acetaminophen 650 mg 01/18/20 15:40 Tylenol PO Q4H PRN Pain MILD(1-3)/Fever >100.5/HUERTA Atorvastatin Calcium 20 mg 01/18/20 22:00 01/18/20 21:24 Lipitor PO 20 mg QHS GARY Administration Carvedilol 3.125 mg 01/18/20 22:00 01/19/20 10:04 Coreg PO Not Given BID [facility] Digoxin 0.125 mg 01/19/20 17:00 Lanoxin PO DAILY@1700 [facility] Enoxaparin Sodium 40 mg 01/19/20 10:00 01/19/20 10:00 Enoxaparin SUB-Q 40 mg QDAY@1000 [facility] Administration Furosemide 20 mg 01/19/20 06:00 01/19/20 05:44 Lasix PO 20 mg DAILY@0600 [facility] Administration Sodium Chloride 500 mls @ 50 mls/hr 01/19/20 12:00 Nacl 0.9% 500 Ml IV 01/19/20 21:59 DIRECT [facility] Lisinopril 5 mg 01/19/20 10:00 01/19/20 10:04 Zestril PO Not Given DAILY GARY Nitroglycerin 0.4 mg 01/18/20 14:10 Nitrostat SL Q5M PRN Chest Pain Ondansetron HCl 4 mg 01/18/20 15:40 Zofran IV Q8H PRN Nausea And Vomiting Sodium Chloride 10 ml 01/18/20 14:10 01/18/20 21:24 Sodium Chloride Flush Syringe 10 Ml IV 10 ml PRN PRN Administration LINE FLUSH Spironolactone 25 mg 01/19/20 10:00 01/19/20 10:04 Aldactone PO Not Given QDAY GARY
[2020-01-19] MEDS: DIGOXIN 0.125 MG TAB PO SCH (16:29)
[2020-01-20] MEDS: FUROSEMIDE 20 MG TAB PO SCH (05:32)
[2020-01-20 07:27] LABS: Basophils % (Auto) 0.5 % (0.0-1.8); Eosinophils # (Auto) 0.2 K/mm3 (0.0-0.4); Eosinophils % (Auto) 2.3 % (0.0-4.3); Hematocrit 41.3 % (30.3-42.9); Hemoglobin 13.7 gm/dl (10.1-14.3); Lymphocytes # (Auto) 3.9 K/mm3 (1.2-5.4); Lymphocytes % (Auto) 52.6 % (13.4-35.0); Mean Corpuscular HGB Conc 33 % (30-34); Mean Corpuscular Volume 93 fl (79-97); Monocytes # (Auto) 0.5 K/mm3 (0.0-0.8); Platelet Count 220 K/mm3 (140-440); Red Blood Count 4.42 M/mm3 (3.65-5.03)
[2020-01-20 07:36] LABS: BUN/Creatinine Ratio 16; Blood Urea Nitrogen 11 mg/dL (7-17); Calcium 9.6 mg/dL (8.4-10.2); Hemolysis Index 4
[2020-01-20] MEDS ORDERED: ASPIRIN EC 81 MG TAB PO ONE ×2 (07:47→08:00)
[2020-01-20] MEDS ORDERED: SODIUM CHLORIDE 0.9% 500 ML 500 ML ONE (07:47)
[2020-01-20] MEDS ORDERED: SODIUM CHLORIDE 0.9% 500 ML 500 ML IV SCH ×2 (08:00→16:00)
[2020-01-20] MEDS ORDERED: HEPARIN/NS 5000 UNIT/500ML 1,000 ML IR ONE (08:08)
[2020-01-20] MEDS ORDERED: VERAPAMIL 5 MG/2 ML INJ ONE (08:09)
[2020-01-20] MEDS: HEPARIN 10,000 UNITS/10 ML VIAL ONE ×2 (08:51→09:16)
[2020-01-20] MEDS: fentaNYL 100 MCG/2 ML INJ ONE ×2 (08:51→09:12)
[2020-01-20] MEDS: NITROGLYCERIN SYRINGE 3 ML ONE ×2 (08:51→09:16)
[2020-01-20] MEDS: MIDAZOLAM 2 MG/2 ML INJ ONE ×2 (08:51→09:12)
[2020-01-20] MEDS: LIDOCAINE (2%) 20 MG/1 ML VIAL 20 ML MDV INFILTRATI ONE ×2 (08:51→09:15)
[2020-01-20] MEDS ORDERED: ATROPINE 0.1% (1 MG/10 ML) CARDIAC SYRINGE ONE (09:07)
--- NOTE | 2020-01-20 10:52 | Progress Note ---
Assessment and Plan S/p LHC this AM which showed normal coronaries, EF 30%. Pt feeling better today, says chest pain is resolved. tele reviewed - in SR with freq PVCs noted overnight, some bigeminy and trigeminy, short runs NSVT noted during LHC. Cardiac defibrillator recommended in setting of CMP and ventricular ectopy. Pt is agreeable to LifeVest at this time and will address AICD candidacy as OP. LifeVest ordered. Currently stable cardiac status. Cont present cardiac management. Pending LifeVest placement, pt may discharge from cardiology standpoint. Follow up in our [place] office with Dr. Lewis on 01/30/2020 @ 10:15AM. The patient has been seen in conjunction with Dr. Mohan Aragon who agrees with the assessment and plan of care. - Patient Problems (1) Chest pain Current Visit: Yes Status: Resolved (2) PVCs (premature ventricular contractions) Current Visit: Yes Status: Acute (3) Chronic HFrEF (heart failure with reduced ejection fraction) Current Visit: Yes Status: Chronic (4) Nonischemic cardiomyopathy Current Visit: Yes Status: Chronic (5) Mitral regurgitation Current Visit: Yes Status: Chronic (6) Hypertension Current Visit: Yes Status: Chronic Qualifiers: Hypertension type: essential hypertension Qualified Code(s): I10 - Essential (primary) hypertension (7) Hyperlipidemia Current Visit: Yes Status: Chronic (8) NSVT (nonsustained ventricular tachycardia) Current Visit: Yes Status: Acute Subjective Date of service: 01/20/20 Principal diagnosis: cp Interval history: pt seen s/p LHC, feeling better. tele reviewed - in SR with freq PVCs noted overnight, some bigeminy and trigeminy, short runs NSVT noted during LHC. Objective Last Vital Signs Temp 97.5 F L 01/20/20 04:43 Pulse 32 L 01/20/20 04:43 Resp 16 01/20/20 04:43 BP 121/57 01/20/20 04:43 Pulse Ox 98 01/20/20 04:43 - Physical Examination General: No Apparent Distress HEENT: Positive: PERRL, Normocephaly, Mucus Membranes Moist Neck: Positive: neck supple, trachea midline Cardiac: Positive: Reg Rate and Rhythm, S1/S2 Lungs: Positive: Decreased Breath Sounds Neuro: Positive: Grossly Intact Abdomen: Negative: Tender Skin: Negative: Rash Musculoskeletal: No Pain Extremities: Absent: edema - Labs and Meds Coagulation 01/20/20 Range/Units 07:23 PT 13.3 (12.2-14.9) Sec. INR 1.00 (0.87-1.13) CBC 01/20/20 Range/Units 07:23 WBC 7.5 (4.5-11.0) K/mm3 RBC 4.42 (3.65-5.03) M/mm3 Hgb 13.7 (10.1-14.3) gm/dl Hct 41.3 (30.3-42.9) % Plt Count 220 (140-440) K/mm3 Lymph # 3.9 (1.2-5.4) K/mm3 Stevens # 0.5 (0.0-0.8) K/mm3 Eos # 0.2 (0.0-0.4) K/mm3 Baso # 0.0 (0.0-0.1) K/mm3 Comprehensive Metabolic Panel 01/20/20 Range/Units 07:23 Sodium 137 (137-145) mmol/L Potassium 3.8 (3.6-5.0) mmol/L Chloride 100.2 (98-107) mmol/L Carbon Dioxide 24 (22-30) mmol/L BUN 11 (7-17) mg/dL Creatinine 0.7 (0.6-1.2) mg/dL Glucose 124 H (65-100) mg/dL Calcium 9.6 (8.4-10.2) mg/dL - Imaging and Cardiology EKG: report reviewed, image reviewed Echo: report reviewed (12/10/2019 showed EF 15-20%, LA mild to mod dilated, mild AR, mod to severe MR, mild TR, RVSP 41mmHg. ) - EKG Sinus rhythms and dysrhythmias: sinus rhythm Ventricular dysrhythmias: ventricular premature com
[2020-01-20] MEDS: carvediloL 3.125 MG TAB PO SCH ×2 (11:03→21:17)
[2020-01-20] MEDS: ENOXAPARIN 40 MG/0.4 ML INJ SUB-Q SCH (11:03)
[2020-01-20] MEDS: SPIRONOLACTONE 25 MG TAB PO SCH (11:03)
--- NOTE | 2020-01-20 11:33 | Cardiac Catherization Report ---
CARDIAC CATHETERIZATION REFERRING PHYSICIAN: Hospitalist service. INDICATION FOR PROCEDURE: The patient is a pleasant 64-year-old -[place] female who presents with recurrent chest pain despite recent negative stress test and optimal medical therapy. Risks, benefits, alternatives discussed. She would like to proceed with left heart catheterization. PROCEDURE IN DETAIL: The patient was brought to the catheterization lab in a postabsorptive state, prepped and draped in sterile fashion. Joseph's test in right hand was normal. A 2 mL of 2% lidocaine used to anesthetize the right wrist. A standard 6-Greenlandic hydrophilic sheath used to cannulate the right radial artery via modified Seldinger technique. All exchanges performed to exchange a J-tip guidewire. JL3.5 catheter used to engage the left main. No dampening or ventricularization. Cineangiography performed in all projections. JR4 catheter was used to cross the aortic valve under fluoroscopic guidance. Left ventriculography performed in 30 PINTO and 30 SLOVENIAN projections via hand injections, catheter flushed. Manual pullback performed with continuous pressure monitoring. Catheter used to engage the right coronary. No dampening or ventricularization. Cineangiography was performed in multiple projections. Next, catheter removed from the body over wire, sheath removed. Manual pressure used to achieve hemostasis. There were no immediate complications. I directly supervised the administration of moderate sedation with fentanyl and Versed from 9:12 a.m. to 9:35 a.m. DATA: The patient remained in sinus rhythm and ventricular bigeminy throughout. No pauses or dysrhythmias. Aortic pressure is 110/60, LV pressure is 110, LVEDP of 7 mmHg. Left ventriculography reveals severe globally dilated and hypokinetic left ventricle, estimated ejection fraction of ____. No evidence of aortic stenosis. CORONARY ANATOMY: This is a right dominant system. Right coronary is a moderate sized vessel, courses AV groove, distally bifurcates into posterior and posterolateral branches. No discrete stenosis noted. Left main without significant disease, bifurcates left anterior descending and left circumflex. Left circumflex, moderate sized vessel, courses AV groove. No significant disease. LAD is a moderate sized vessel, courses anterior intergroove, wraps around the apex, no significant disease. CONCLUSIONS: 1. No angiographic evidence of significant epicardial coronary disease in this right dominant system. 2. Normal left ventricular systolic performance, estimated ejection fraction of ____. 3. No evidence of aortic stenosis. 4. Normal LVEDP. The patient with some bigeminy and PVCs ____ these findings are consistent with a severe nonischemic dilated cardiomyopathy. We will optimize medical therapy. Continue goal directed medical therapy. Follow up with Dr. Lewis in the office. Stable cardiac status. JOB# [id number] SBM/NTS
[2020-01-20] MEDS: LISINOPRIL 5 MG TAB PO SCH (12:09)
--- NOTE | 2020-01-20 17:51 | Progress Note ---
Assessment and Plan Assessment and plan: This is a 64 year old female with HFrEF (EF 20-25%), HTN, and cardiomyopathy presents to [facility] with intermittent left sided chest pain with intermittent radiation to her left shoulder which started 01/16 and was dull and heavy but became sharp on 01/17. She also complains of palpitations. Of note she was re cently discharged in December with a diagnosis of HFrEF. Work up in the emergency department reveals slight hyponatremia (Na 135) and her chest x-ray has no acute findings and she was in NSR with bigeminy and trigeminy in the emergency department. Dr. Lewis consulted as patient is familiar to him. This morning she complains of intermittent chest pains overnight however none this morning. This morning she she has sinus bradycardia on the equipment monitor phototypesetting and she is hypotensive. Overnight her systolic blood pressures have been in the 80s and 90s and upon recheck this morning it was 103/83. Her morning medications have been held and she received a 500 mL normal saline bolus. Cardiology plans to conduct a left heart cath in the morning. Extensive heart failure education done at bedside by me and Dr. Lanza. 01/17: Plan for cardiac cath in a.m. and n.p.o. at midnight 01/19: Patient seen today, per cardiology she is s/p LHC this AM which showed normal coronaries, EF 30%. Pt feeling better today, says chest pain is resolved. tele reviewed - in SR with freq PVCs noted overnight, some bigeminy and trigeminy, short runs NSVT noted during LHC. Cardiac defibrillator recommended in setting of CMP and ventricular ectopy. Pt is agreeable to LifeVest at this time and will address AICD candidacy as OP. LifeVest ordered. Currently stable cardiac status. Cont present cardiac management. Pending LifeVest placement, pt may discharge from cardiology standpoint. Discussed with case management awaiting approval for LifeVest. (1) Chest pain secondary to cardiac arrhythmia Current Visit: Yes Status: Acute Plan to address problem: - EKG PRN - Sublingual Nitroglycerin PRN - on Telemetry - 01/17 ma.9 - Cardiology consult, appreciate recommendations - Serial troponins have been < 0.01 - 12/12/2019 Lexiscan MPI stress test was negative for ischemia; EF 25%. - 12/10/19 TTE showed EF 15-20%, LA mild to mod dilated, mild AR, mod to severe MR, mild TR - 2012 Left heart cath showed normal coronaries and normal LV function - 01/19: Left heart cath planned. (2) Chronic HFrEF (heart failure with reduced ejection fraction) Current Visit: Yes Status: Chronic Plan to address problem: - 12/12/2019 Lexiscan MPI stress test was negative for ischemia; EF 25%. - 12/10/19 TTE showed EF 15-20%, LA mild to mod dilated, mild AR, mod to severe MR, mild TR - 2012 Left heart cath showed normal coronaries and normal LV function - Cardiology consult, appreciate recommendations - Cardiac diet - Restarted Coreg, Sprinolactone, Lasix, and Digoxin (held on 01/18 in light of SB and hypotension and received 500 normal saline bolus) - 01/17 Digoxin level 0.6 - 01/17 BNP 390.4 - Daily weights - LHC planned by cardiology in the AM (3) Hypertension Current Visit: Yes Status: Chronic Qualifiers: Hypertension type: essential hypertension Qualified Code(s): I10 - Essential (primary) hypertension Plan to address problem: - Restarted Coreg, Sprinolactone, Lasix (held 01/18 for hypotension) - 01/18 500 ml NS bolus - BP monitoring per protocol (4) Hyperlipidemia Current Visit: Yes Status: Chronic Plan to address problem: - 01/18 lipid panel: Cholesterol 161, LDL 97, HDL 61 - Statin therapy started (5) nonischemic cardiomyopathy LifeVest as recommended above. (6) symptomatic PVCs (7) Mitral regurgitation Current Visit: Yes Status: Chronic (8) Hypertension Current Visit: Yes Status: Chronic Qualifiers: Hypertension type: essential hypertension Qualified Code(s): I10 - Essential (primary) hypertension (9) Hyperlipidemia Current Visit: Yes Status: Chronic (10) NSVT (nonsustained ventricular tachycardia) Current Visit: Yes Status: Acute (11) DVT prophylaxis Current Visit: No Status: Acute Plan to address problem: - SCDs to BLE while in bed - Lovenox subq History Interval history: Patient seen and examined, no acute distress. Did have an episode of hypotension today but now stable. Hospitalist Physical - Physical exam Narrative exam: VITAL SIGNS: Reviewed. GENERAL: The patient appears normally developed, Vital signs as documented. HEAD: No signs of head trauma. EYES: Pupils are equal. Extraocular motions intact. EARS: Hearing grossly intact. MOUTH: Oropharynx is normal. NECK: No adenopathy, no JVD. CHEST: Chest with clear breath sounds bilaterally. No wheezes, rales, or rhonchi. CARDIAC: Regular rate and rhythm. S1 and S2, without murmurs, gallops, or rubs. VASCULAR: No Edema. Peripheral pulses normal and equal in all extremities. ABDOMEN: Soft, non tender and non distended. No rebound or guarding, and no masses palpated. Bowel Sounds normal. MUSCULOSKELETAL: Good range of motion of all major joints. Extremities without clubbing, cyanosis or edema. NEUROLOGIC EXAM: Alert and oriented x 3 No focal sensory or strength deficits. Speech normal. Follows commands. PSYCHIATRIC: Mood normal. SKIN: detail exam as documented in skin assessment - Constitutional Vitals: Temp Pulse Resp BP Pulse Ox 97.5 F L 75 18 118/58 100 01/20/20 04:43 01/20/20 12:09 01/20/20 11:00 01/20/20 12:09 01/20/20 09:56 General appearance: Present: no acute distress HEART Score - HEART Score EKG: Non-specific Age: 45-65 Risk factors: > 3 risk factors or hx of atherosclerotic disease Troponin: Troponin T < 0.010 ng/mL (0.00-0.029) 01/18/20 17:10 Troponin: < normal limit - Critical Actions Critical Actions: 4-6 pts:12-16.6% risk of adverse cardiac event. Should be admi tted Results - Labs CBC & Chem 7: 01/20/20 07:23 01/20/20 07:23 Labs: Laboratory Last Values WBC 7.5 K/mm3 (4.5-11.0) 01/20/20 07:23 RBC 4.42 M/mm3 (3.65-5.03) 01/20/20 07:23 Hgb 13.7 gm/dl (10.1-14.3) 01/20/20 07:23 Hct 41.3 % (30.3-42.9) 01/20/20 07:23 MCV 93 fl (79-97) 01/20/20 07:23 MCH 31 pg (28-32) 01/20/20 07:23 MCHC 33 % (30-34) 01/20/20 07:23 RDW 14.0 % (13.2-15.2) 01/20/20 07:23 Plt Count 220 K/mm3 (140-440) 01/20/20 07:23 Lymph % (Auto) 52.6 % (13.4-35.0) H 01/20/20 07:23 [place] % (Auto) 7.0 % (0.0-7.3) 01/20/20 07:23 Eos % (Auto) 2.3 % (0.0-4.3) 01/20/20 07:23 Baso % (Auto) 0.5 % (0.0-1.8) 01/20/20 07:23 Lymph # 3.9 K/mm3 (1.2-5.4) 01/20/20 07:23 [place] # 0.5 K/mm3 (0.0-0.8) 01/20/20 07:23 Eos # 0.2 K/mm3 (0.0-0.4) 01/20/20 07:23 Baso # 0.0 K/mm3 (0.0-0.1) 01/20/20 07:23 Seg Neutrophils % 37.6 % (40.0-70.0) L 01/20/20 07:23 Seg Neutrophils # 2.8 K/mm3 (1.8-7.7) 01/20/20 07:23 PT 13.3 Sec. (12.2-14.9) 01/20/20 07:23 INR 1.00 (0.87-1.13) 01/20/20 07:23 APTT 29.3 Sec. (24.2-36.6) 01/18/20 11:50 Sodium 137 mmol/L (137-145) 01/20/20 07:23 Potassium 3.8 mmol/L (3.6-5.0) 01/20/20 07:23 Chloride 100.2 mmol/L (98-107) 01/20/20 07:23 Carbon Dioxide 24 mmol/L (22-30) 01/20/20 07:23 Anion Gap 17 mmol/L 01/20/20 07:23 BUN 11 mg/dL (7-17) 01/20/20 07:23 Creatinine 0.7 mg/dL (0.6-1.2) 01/20/20 07:23 Estimated GFR > 60 ml/min 01/20/20 07:23 BUN/Creatinine Ratio 16 % 01/20/20 07:23 Glucose 124 mg/dL (65-100) H 01/20/20 07:23 Calcium 9.6 mg/dL (8.4-10.2) 01/20/20 07:23 Magnesium 1.90 mg/dL (1.7-2.3) 01/18/20 17:10 Total Bilirubin 0.30 mg/dL (0.1-1.2) 01/18/20 11:50 Direct Bilirubin < 0.2 mg/dL (0-0.2) 01/18/20 11:50 Indirect Bilirubin 0.1 mg/dL 01/18/20 11:50 AST 25 units/L (5-40) 01/18/20 11:50 ALT 23 units/L (7-56) 01/18/20 11:50 Alkaline Phosphatase 55 units/L (35-129) 01/18/20 11:50 Troponin T < 0.010 ng/mL (0.00-0.029) 01/18/20 17:10 NT-Pro-B Natriuret Pep 390.4 pg/mL (0-900) 01/18/20 11:50 Total Protein 8.1 g/dL (6.3-8.2) 01/18/20 11:50 Albumin 4.3 g/dL (3.9-5) 01/18/20 11:50 Albumin/Globulin Ratio 1.1 % 01/18/20 11:50 Triglycerides 42 mg/dL (2-149) 01/18/20 17:10 Cholesterol 161 mg/dL (50-199) 01/18/20 17:10 LDL Cholesterol Direct 97 mg/dL (50-130) 01/18/20 17:10 HDL Cholesterol 61 mg/dL (40-59) H 01/18/20 17:10 Cholesterol/HDL Ratio 2.63 % 01/18/20 17:10 TSH 0.439 mlU/mL (0.270-4.200) 01/18/20 17:10 Free T4 1.30 ng/dL (0.76-1.46) 01/18/20 17:10 Digoxin 0.6 ng/mL (0.9-2.0) L 01/18/20 17:10 Pozo/IV: Voiding Method Toilet IV Catheter Type [Left INT / Saline Lock Antecubital] Active Medications - Current Medications Current Medications: Generic Name Dose Route Start Last Admin Trade Name Freq PRN Reason Stop Dose Admin Acetaminophen 650 mg 01/18/20 15:40 Tylenol PO Q4H PRN Pain MILD(1-3)/Fever >100.5/HUERTA Atorvastatin Calcium 20 mg 01/18/20 22:00 01/19/20 21:29 Lipitor PO 20 mg QHS GARY Administration Carvedilol 3.125 mg 01/18/20 22:00 01/20/20 11:03 Coreg PO 3.125 mg BID GARY Administration Digoxin 0.125 mg 01/19/20 17:00 01/19/20 16:29 Lanoxin PO 0.125 mg DAILY@1700 GARY Administration Enoxaparin Sodium 40 mg 01/19/20 10:00 01/20/20 11:03 Enoxaparin SUB-Q 40 mg QDAY@1000 GARY Administration Furosemide 20 mg 01/19/20 06:00 01/20/20 05:32 Lasix PO 20 mg DAILY@0600 GARY Administration Sodium Chloride 500 mls @ 50 mls/hr 01/20/20 16:00 Nacl 0.9% 500 Ml IV 01/20/20 23:00 DIRECT GARY Lisinopril 5 mg 01/19/20 10:00 01/20/20 12:09 Zestril PO 5 mg DAILY GARY Administration Nitroglycerin 0.4 mg 01/18/20 14:10 Nitrostat SL Q5M PRN Chest Pain Ondansetron HCl 4 mg 01/18/20 15:40 Zofran IV Q8H PRN Nausea And Vomiting Sodium Chloride 10 ml 01/18/20 14:10 01/19/20 21:29 Sodium Chloride Flush Syringe 10 Ml IV 10 ml PRN PRN Administration LINE FLUSH Spironolactone 25 mg 01/19/20 10:00 01/20/20 11:03 Aldactone PO 25 mg QDAY GARY Administration
[2020-01-20] MEDS: DIGOXIN 0.125 MG TAB PO SCH (18:12)
[2020-01-21] MEDS: FUROSEMIDE 20 MG TAB PO SCH (06:43)
[2020-01-21] MEDS: carvediloL 3.125 MG TAB PO SCH (09:55)
[2020-01-21] MEDS: ENOXAPARIN 40 MG/0.4 ML INJ SUB-Q SCH (09:55)
[2020-01-21] MEDS: LISINOPRIL 5 MG TAB PO SCH (09:56)
[2020-01-21] MEDS: SPIRONOLACTONE 25 MG TAB PO SCH (11:45)
--- NOTE | 2020-01-21 15:13 | Progress Note ---
Assessment and Plan Assessment and plan: This is a 64 year old female with HFrEF (EF 20-25%), HTN, and cardiomyopathy presents to [facility] with intermittent left sided chest pain with intermittent radiation to her left shoulder which started 01/16 and was dull and heavy but became sharp on 01/17. She also complains of palpitations. Of note she was re cently discharged in December with a diagnosis of HFrEF. Work up in the emergency department reveals slight hyponatremia (Na 135) and her chest x-ray has no acute findings and she was in NSR with bigeminy and trigeminy in the emergency department. Dr. Lewis consulted as patient is familiar to him. This morning she complains of intermittent chest pains overnight however none this morning. This morning she she has sinus bradycardia on the equipment monitor phototypesetting and she is hypotensive. Overnight her systolic blood pressures have been in the 80s and 90s and upon recheck this morning it was 103/83. Her morning medications have been held and she received a 500 mL normal saline bolus. Cardiology plans to conduct a left heart cath in the morning. Extensive heart failure education done at bedside by me and Dr. Lanza. 01/17: Plan for cardiac cath in a.m. and n.p.o. at midnight 01/19: Patient seen today, per cardiology she is s/p LHC this AM which showed normal coronaries, EF 30%. Pt feeling better today, says chest pain is resolved. tele reviewed - in SR with freq PVCs noted overnight, some bigeminy and trigeminy, short runs NSVT noted during LHC. Cardiac defibrillator recommended in setting of CMP and ventricular ectopy. Pt is agreeable to LifeVest at this time and will address AICD candidacy as OP. LifeVest ordered. Currently stable cardiac status. Cont present cardiac management. Pending LifeVest placement, pt may discharge from cardiology standpoint. Discussed with case management awaiting approval for LifeVest. : We will discontinue VALERI inhibitor due to persistent hypotension. Otherwise continue to monitor. Still awaiting LifeVest for discharge. (1) Chest pain secondary to cardiac arrhythmia Current Visit: Yes Status: Acute Plan to address problem: - EKG PRN - Sublingual Nitroglycerin PRN - on Telemetry - 01/17 ma.9 - Cardiology consult, appreciate recommendations - Serial troponins have been < 0.01 - 12/12/2019 Lexiscan MPI stress test was negative for ischemia; EF 25%. - 12/10/19 TTE showed EF 15-20%, LA mild to mod dilated, mild AR, mod to severe MR, mild TR - 2012 Left heart cath showed normal coronaries and normal LV function - 01/19: Left heart cath planned. (2) Chronic HFrEF (heart failure with reduced ejection fraction) Current Visit: Yes Status: Chronic Plan to address problem: - 12/12/2019 Lexiscan MPI stress test was negative for ischemia; EF 25%. - 12/10/19 TTE showed EF 15-20%, LA mild to mod dilated, mild AR, mod to severe MR, mild TR - 2012 Left heart cath showed normal coronaries and normal LV function - Cardiology consult, appreciate recommendations - Cardiac diet - Restarted Coreg, Sprinolactone, Lasix, and Digoxin (held on 01/18 in light of SB and hypotension and received 500 normal saline bolus) - 01/17 Digoxin level 0.6 - 01/17 BNP 390.4 - Daily weights - LHC planned by cardiology in the AM (3) Hypertension Current Visit: Yes Status: Chronic Qualifiers: Hypertension type: essential hypertension Qualified Code(s): I10 - Essential (primary) hypertension Plan to address problem: - Restarted Coreg, Sprinolactone, Lasix (held 01/18 for hypotension) - 01/18 500 ml NS bolus - BP monitoring per protocol (4) Hyperlipidemia Current Visit: Yes Status: Chronic Plan to address problem: - 01/18 lipid panel: Cholesterol 161, LDL 97, HDL 61 - Statin therapy started (5) nonischemic cardiomyopathy LifeVest as recommended above. (6) symptomatic PVCs (7) Mitral regurgitation Current Visit: Yes Status: Chronic (8) Hypertension Current Visit: Yes Status: Chronic Qualifiers: Hypertension type: essential hypertension Qualified Code(s): I10 - Essential (primary) hypertension (9) Hyperlipidemia Current Visit: Yes Status: Chronic (10) NSVT (nonsustained ventricular tachycardia) Current Visit: Yes Status: Acute (11) DVT prophylaxis Current Visit: No Status: Acute Plan to address problem: - SCDs to BLE while in bed - Lovenox subq History Interval history: Patient seen and examined, no acute distress. Still with intermittent hypotension although asymptomatic. Patient still awaiting LifeVest. Hospitalist Physical - Physical exam Narrative exam: VITAL SIGNS: Reviewed. GENERAL: The patient appears normally developed, Vital signs as documented. HEAD: No signs of head trauma. EYES: Pupils are equal. Extraocular motions intact. EARS: Hearing grossly intact. MOUTH: Oropharynx is normal. NECK: No adenopathy, no JVD. CHEST: Chest with clear breath sounds bilaterally. No wheezes, rales, or rhonchi. CARDIAC: Regular rate and rhythm. S1 and S2, without murmurs, gallops, or rubs. VASCULAR: No Edema. Peripheral pulses normal and equal in all extremities. ABDOMEN: Soft, non tender and non distended. No rebound or guarding, and no masses palpated. Bowel Sounds normal. MUSCULOSKELETAL: Good range of motion of all major joints. Extremities without clubbing, cyanosis or edema. NEUROLOGIC EXAM: Alert and oriented x 3 No focal sensory or strength deficits. Speech normal. Follows commands. PSYCHIATRIC: Mood normal. SKIN: detail exam as documented in skin assessment - Constitutional Vitals: Temp Pulse Resp BP Pulse Ox 98 F 77 18 87/49 100 01/21/20 11:46 01/21/20 13:00 01/21/20 11:20 01/21/20 11:20 01/21/20 11:20 General appearance: Present: no acute distress HEART Score - HEART Score EKG: Non-specific Age: 45-65 Risk factors: > 3 risk factors or hx of atherosclerotic disease Troponin: Troponin T < 0.010 ng/mL (0.00-0.029) 01/18/20 17:10 Troponin: < normal limit - Critical Actions Critical Actions: 4-6 pts:12-16.6% risk of adverse cardiac event. Should be admitted Results - Labs CBC & Chem 7: 01/20/20 07:23 01/20/20 07:23 Labs: Laboratory Last Values WBC 7.5 K/mm3 (4.5-11.0) 01/20/20 07:23 RBC 4.42 M/mm3 (3.65-5.03) 01/20/20 07:23 Hgb 13.7 gm/dl (10.1-14.3) 01/20/20 07:23 Hct 41.3 % (30.3-42.9) 01/20/20 07:23 MCV 93 fl (79-97) 01/20/20 07:23 MCH 31 pg (28-32) 01/20/20 07:23 MCHC 33 % (30-34) 01/20/20 07:23 RDW 14.0 % (13.2-15.2) 01/20/20 07:23 Plt Count 220 K/mm3 (140-440) 01/20/20 07:23 Lymph % (Auto) 52.6 % (13.4-35.0) H 01/20/20 07:23 [place] % (Auto) 7.0 % (0.0-7.3) 01/20/20 07:23 Eos % (Auto) 2.3 % (0.0-4.3) 01/20/20 07:23 Baso % (Auto) 0.5 % (0.0-1.8) 01/20/20 07:23 Lymph # 3.9 K/mm3 (1.2-5.4) 01/20/20 07:23 [place] # 0.5 K/mm3 (0.0-0.8) 01/20/20 07:23 Eos # 0.2 K/mm3 (0.0-0.4) 01/20/20 07:23 Baso # 0.0 K/mm3 (0.0-0.1) 01/20/20 07:23 Seg Neutrophils % 37.6 % (40.0-70.0) L 01/20/20 07:23 Seg Neutrophils # 2.8 K/mm3 (1.8-7.7) 01/20/20 07:23 PT 13.3 Sec. (12.2-14.9) 01/20/20 07:23 INR 1.00 (0.87-1.13) 01/20/20 07:23 APTT 29.3 Sec. (24.2-36.6) 01/18/20 11:50 Sodium 137 mmol/L (137-145) 01/20/20 07:23 Potassium 3.8 mmol/L (3.6-5.0) 01/20/20 07:23 Chloride 100.2 mmol/L (98-107) 01/20/20 07:23 Carbon Dioxide 24 mmol/L (22-30) 01/20/20 07:23 Anion Gap 17 mmol/L 01/20/20 07:23 BUN 11 mg/dL (7-17) 01/20/20 07:23 Creatinine 0.7 mg/dL (0.6-1.2) 01/20/20 07:23 Estimated GFR > 60 ml/min 01/20/20 07:23 BUN/Creatinine Ratio 16 % 01/20/20 07:23 Glucose 124 mg/dL (65-100) H 01/20/20 07:23 Calcium 9.6 mg/dL (8.4-10.2) 01/20/20 07:23 Magnesium 1.90 mg/dL (1.7-2.3) 01/18/20 17:10 Total Bilirubin 0.30 mg/dL (0.1-1.2) 01/18/20 11:50 Direct Bilirubin < 0.2 mg/dL (0-0.2) 01/18/20 11:50 Indirect Bilirubin 0.1 mg/dL 01/18/20 11:50 AST 25 units/L (5-40) 01/18/20 11:50 ALT 23 units/L (7-56) 01/18/20 11:50 Alkaline Phosphatase 55 units/L (35-129) 01/18/20 11:50 Troponin T < 0.010 ng/mL (0.00-0.029) 01/18/20 17:10 NT-Pro-B Natriuret Pep 390.4 pg/mL (0-900) 01/18/20 11:50 Total Protein 8.1 g/dL (6.3-8.2) 01/18/20 11:50 Albumin 4.3 g/dL (3.9-5) 01/18/20 11:50 Albumin/Globulin Ratio 1.1 % 01/18/20 11:50 Triglycerides 42 mg/dL (2-149) 01/18/20 17:10 Cholesterol 161 mg/dL (50-199) 01/18/20 17:10 LDL Cholesterol Direct 97 mg/dL (50-130) 01/18/20 17:10 HDL Cholesterol 61 mg/dL (40-59) H 01/18/20 17:10 Cholesterol/HDL Ratio 2.63 % 01/18/20 17:10 TSH 0.439 mlU/mL (0.270-4.200) 01/18/20 17:10 Free T4 1.30 ng/dL (0.76-1.46) 01/18/20 17:10 Digoxin 0.6 ng/mL (0.9-2.0) L 01/18/20 17:10 Pozo/IV: Voiding Method Toilet IV Catheter Type [Left INT / Saline Lock Antecubital] Active Medications - Current Medications Current Medications: Generic Name Dose Route Start Last Admin Trade Name Freq PRN Reason Stop Dose Admin Acetaminophen 650 mg 01/18/20 15:40 Tylenol PO Q4H PRN Pain MILD(1-3)/Fever >100.5/HUERTA Atorvastatin Calcium 20 mg 01/18/20 22:00 01/20/20 21:17 Lipitor PO 20 mg QHS GARY Administration Carvedilol 3.125 mg 01/18/20 22:00 01/21/20 09:55 Coreg PO 3.125 mg BID GARY Administration Digoxin 0.125 mg 01/19/20 17:00 01/20/20 18:12 Lanoxin PO 0.125 mg DAILY@1700 [facility] Administration Enoxaparin Sodium 40 mg 01/19/20 10:00 01/21/20 09:55 Enoxaparin SUB-Q 40 mg QDAY@1000 [facility] Administration Lisinopril 5 mg 01/19/20 10:00 01/21/20 09:56 Zestril PO Not Given DAILY [facility] Nitroglycerin 0.4 mg 01/18/20 14:10 Nitrostat SL Q5M PRN Chest Pain Ondansetron HCl 4 mg 01/18/20 15:40 Zofran IV Q8H PRN Nausea And Vomiting Sodium Chloride 10 ml 01/18/20 14:10 01/19/20 21:29 Sodium Chloride Flush Syringe 10 Ml IV 10 ml PRN PRN Administration LINE FLUSH Spironolactone 25 mg 01/19/20 10:00 01/21/20 11:45 Aldactone PO Not Given QDAY [facility]
--- NOTE | 2020-01-21 15:59 | Discharge Summary ---
Providers - Providers Date of Admission: 01/20/20 18:05 Attending physician: REBECA TALBOT MD 01/18/20 Consult to Cardiac Rehabilitation [CONS] Routine Reason For Exam: Phase I 01/18/20 14:10 Consult to Cardiology [CONS] Routine Consulting Provider: THEODORA LEWIS Reason For Exam: CP, previously known to service 01/20/20 11:12 Consult to Cardiac Rehabilitation [CONS] Routine Reason For Exam: Cardiac Rehab Evaluation Primary care physician: [employer] OPERATOR Hospitalization Condition: Stable Hospital course: This is a 64 year old female with HFrEF (EF 20-25%), HTN, and cardiomyopathy presents to [facility] with intermittent left sided chest pain with intermittent radiation to her left shoulder which started 01/16 and was dull and heavy but became sharp on 01/17. She also complains of palpitations. Of note she was recently discharged in December with a diagnosis of HFrEF. Work up in the emergency department reveals slight hyponatremia (Na 135) and her chest x-ray has no acute findings and she was in NSR with bigeminy and trigeminy in the emergency department. Dr. Lewis consulted as patient is familiar to him. This morning she complains of intermittent chest pains overnight however none this morning. This morning she she has sinus bradycardia on the classroom monitor and she is hypotensive. Overnight her systolic blood pressures have been in the 80s and 90s and upon recheck this morning it was 103/83. Her morning medications have been held and she received a 500 mL normal saline bolus. Cardiology plans to conduct a left heart cath in the morning. Extensive heart failure education done at bedside by me and Dr. Lanza. 01/17: Plan for cardiac cath in a.m. and n.p.o. at midnight 01/19: Patient seen today, per cardiology she is s/p LHC this AM which showed normal coronaries, EF 30%. Pt feeling better today, says chest pain is resolved. tele reviewed - in SR with freq PVCs noted overnight, some bigeminy and trigeminy, short runs NSVT noted during LHC. Cardiac defibrillator recommended in setting of CMP and ventricular ectopy. Pt is agreeable to LifeVest at this time and will address AICD candidacy as OP. LifeVest ordered. Currently stable cardiac status. Cont present cardiac management. Pending LifeVest placement, pt may discharge from cardiology standpoint. Discussed with case management awaiting approval for LifeVest. : We will discontinue VALERI inhibitor due to persistent hypotension. Otherwise continue to monitor. Still awaiting LifeVest for discharge. (1) Chest pain secondary to cardiac arrhythmia Current Visit: Yes Status: Acute Plan to address problem: - EKG PRN - Sublingual Nitroglycerin PRN - on Telemetry - 01/17 ma.9 - Cardiology consult, appreciate recommendations - Serial troponins have been < 0.01 - 12/12/2019 Lexiscan MPI stress test was negative for ischemia; EF 25%. - 12/10/19 TTE showed EF 15-20%, LA mild to mod dilated, mild AR, mod to severe MR, mild TR - 2012 Left heart cath showed normal coronaries and normal LV function - 01/19: Left heart cath planned. (2) Chronic HFrEF (heart failure with reduced ejection fraction) Current Visit: Yes Status: Chronic Plan to address problem: - 12/12/2019 Lexiscan MPI stress test was negative for ischemia; EF 25%. - 12/10/19 TTE showed EF 15-20%, LA mild to mod dilated, mild AR, mod to severe MR, mild TR - 2012 Left heart cath showed normal coronaries and normal LV function - Cardiology consult, appreciate recommendations - Cardiac diet - Restarted Coreg, Sprinolactone, Lasix, and Digoxin (held on 01/18 in light of SB and hypotension and received 500 normal saline bolus) - 01/17 Digoxin level 0.6 - 01/17 BNP 390.4 - Daily weights - LHC planned by cardiology in the AM (3) Hypertension Current Visit: Yes Status: Chronic Qualifiers: Hypertension type: essential hypertension Qualified Code(s): I10 - Essential (primary) hypertension Plan to address problem: - Restarted Coreg, Sprinolactone, Lasix (held 01/18 for hypotension) - 01/18 500 ml NS bolus - BP monitoring per protocol (4) Hyperlipidemia Current Visit: Yes Status: Chronic Plan to address problem: - 01/18 lipid panel: Cholesterol 161, LDL 97, HDL 61 - Statin therapy started (5) nonischemic cardiomyopathy LifeVest as recommended above. (6) symptomatic PVCs (7) Mitral regurgitation Current Visit: Yes Status: Chronic (8) Hypertension Current Visit: Yes Status: Chronic Qualifiers: Hypertension type: essential hypertension Qualified Code(s): I10 - Essential (primary) hypertension (9) Hyperlipidemia Current Visit: Yes Status: Chronic (10) NSVT (nonsustained ventricular tachycardia) Current Visit: Yes Status: Acute (11) DVT prophylaxis Current Visit: No Status: Acute Plan to address problem: - SCDs to BLE while in bed - Lovenox subq Disposition: DC-01 TO HOME OR SELFCARE Time spent for discharge: 35 mins Exam - Constitutional Vitals: Temp Pulse Resp BP Pulse Ox 98 F 77 18 87/49 100 01/21/20 11:46 01/21/20 13:00 01/21/20 11:20 01/21/20 11:20 01/21/20 11:20 Plan Activity: advance as tolerated, fall precautions Diet: low fat Special Instructions: record daily weights Follow up with: PRIMARY CAREMD [Primary Care Provider] - 3-5 Days THEODORA LEWIS MD [Staff Physician] - 01/30/20 10:15 am Prescriptions: AtorvaSTATin [Lipitor] 20 mg PO QHS #30 tablet Furosemide [Lasix] 20 mg PO DAILY #30 tablet
[2020-01-21 16:06] VITALS: BP 105/45
[2020-01-21] MEDS: DIGOXIN 0.125 MG TAB PO SCH (16:55)
== END 2020-01-21 19:02 | disposition home or self-care (01) | DRG 287 ==
LOC: ED 10:53 → 4A 13:32 → OBSVTOIN 01-20 18:05
PROVIDERS: ADMIT Internal Medicine; ATTEND Internal Medicine
PROC: 4A023N7 Measurement of Cardiac Sampling and Pressure, Left Heart, Percutaneous Approach (ICD-10-PCS; principal; 2020-01-20)
PROC: B2151ZZ Fluoroscopy of Left Heart using Low Osmolar Contrast (ICD-10-PCS; 2020-01-20)
PROC: B2111ZZ Fluoroscopy of Multiple Coronary Arteries using Low Osmolar Contrast (ICD-10-PCS; 2020-01-20)
DX: I49.9 Cardiac arrhythmia, unspecified (principal); I50.22 Chronic systolic (congestive) heart failure; I42.8 Other cardiomyopathies; E87.1 Hypo-osmolality and hyponatremia; I47.1 Supraventricular tachycardia; I11.0 Hypertensive heart disease with heart failure; E78.5 Hyperlipidemia, unspecified; I49.3 Ventricular premature depolarization; I34.0 Nonrheumatic mitral (valve) insufficiency; Z79.899 Other long term (current) drug therapy; Z88.8 Allergy status to other drugs, medicaments and biological substances; Z88.5 Allergy status to narcotic agent; Z88.2 Allergy status to sulfonamides
CPT/HCPCS: 36415; 71045; 80048; 80061; 80076; 80162; 83735; 83880; 84439; 84443; 84484; 85025; 85610; 85730; 93005; 93458; G0378; A9270-GY; C1894; J0461; J1644; J1650; J2250; J3010; J7040; Q9967

== ENCOUNTER 2020-02-01 17:54 | Observation (INO) | payer OTHER ==
--- NOTE | 2020-02-01 18:18 | Emergency Department Report ---
ED Palpitations HPI - General Stated Complaint: BRADYCARDIA Time Seen by Provider: 02/01/20 18:04 Source: patient, EMS, old records reviewed Mode of arrival: Stretcher Limitations: No Limitations - History of Present Illness Initial Comments: CC: " Just a low heart rate." This is a 64-year-old female with history of hypertension, uterine fibroids, CHF, mitral regurgitation, hyperlipidemia who presents with low heart rate. When she took her pulse prior to attempting to exercise, heart rate 30. Patient received atropine per EMS prior to arrival. She left her LifeVest at home. He denies fever. She denies syncope. She denies chest pain. No shortness of breath. Otherwise she is in her normal state of health. 2 days ago Thursday she had outpatient cardiology follow-up with Dr. Lewis. According to transmitted EKG via EMS prior to atropine treatment, patient had sinus bradycardia bigeminy pattern sinus beat followed by PVC. According to electronic medical record, patient was admitted 12 days ago January 19 for cardiac work-up. She presented with chest pain and palpitations. On 01/20/2020, left heart catheterization showed normal coronary arteries, ejection fraction 30%. -: Gradual, This afternoon Context: occured during rest Arrythmia History: other (Recently discharged with LifeVest) Associated Symptoms: denies other symptoms Treatments Prior to Arrival: other (EMS treated patient with atropine) - Related Data Previous Rx's Medication Instructions Recorded Last Taken Type Digoxin 125 mcg PO DAILY #30 tablet 12/13/19 Unknown Rx Spironolactone [Aldactone] 25 mg PO QDAY #30 tablet 12/13/19 01/18/20 Rx carvediloL [Coreg] 3.125 mg PO BID #60 tablet 12/13/19 01/18/20 Rx AtorvaSTATin [Lipitor] 20 mg PO QHS #30 tablet 01/21/20 Unknown Rx Furosemide [Lasix] 20 mg PO DAILY #30 tablet 01/21/20 Unknown Rx Allergies Allergy/AdvReac Type Severity Reaction Status Date / Time morphine Allergy HIVES, Verified 01/18/20 15:50 ITCH, CHEST PAIN, BURNING Sulfa (Sulfonamide Allergy HIVES, Verified 01/18/20 15:50 Antibiotics) ITCH,CHEST PAIN, BURNING tramadol Allergy Rash, Verified 07/14/13 10:15 HIVES, ITCH,CHEST PAIN, BURNING ED Review of Systems ROS: Stated complaint: BRADYCARDIA Other details as noted in HPI Comment: All other systems reviewed and negative Constitutional: denies: fever, malaise Respiratory: denies: cough, shortness of breath Cardiovascular: denies: chest pain, palpitations, dyspnea on exertion, syncope Gastrointestinal: denies: abdominal pain, nausea, vomiting Skin: denies: rash, lesions Neurological: denies: headache, weakness ED Past Medical Hx - Past Medical History Previous Medical History?: Yes Hx Hypertension: Yes (06/2013) Hx Congestive Heart Failure: Yes Hx Diabetes: No Hx Asthma: No Hx COPD: No - Surgical History Past Surgical History?: Yes Additional Surgical History: left ankle. . hysterectomy - Social History Smoking Status: Never Smoker - Medications Home Medications: Home Medications Medication Instructions Recorded Confirmed Last Taken Type Digoxin 125 mcg PO DAILY #30 tablet 12/13/19 01/18/20 Unknown Rx Spironolactone [Aldactone] 25 mg PO QDAY #30 tablet 12/13/19 01/18/20 01/18/20 Rx carvediloL [Coreg] 3.125 mg PO BID #60 tablet 12/13/19 01/18/20 01/18/20 Rx AtorvaSTATin [Lipitor] 20 mg PO QHS #30 tablet 01/21/20 Unknown Rx Furosemide [Lasix] 20 mg PO DAILY #30 tablet 01/21/20 Unknown Rx ED Physical Exam - General General appearance: alert, in no apparent distress, other (Pleasant smiling ambulatory without difficulty appears comfortable) - Head Head exam: Present: atraumatic, normocephalic - Eye Eye exam: Present: normal appearance - ENT ENT exam: Present: mucous membranes moist - Neck Neck exam: Present: normal inspection, full ROM - Respiratory Respiratory exam: Present: normal lung sounds bilaterally. Absent: respiratory distress, wheezes, rales, rhonchi - Cardiovascular Cardiovascular Exam: Present: regular rate, normal rhythm, normal heart sounds. Absent: systolic murmur, diastolic murmur, rubs, gallop - GI/Abdominal GI/Abdominal exam: Present: soft, normal bowel sounds. Absent: distended, tenderness, guarding, rebound - Extremities Exam Extremities exam: Present: normal inspection - Neurological Exam Neurological exam: Present: alert, oriented X3 - Psychiatric Psychiatric exam: Present: normal affect, normal mood - Skin Skin exam: Present: warm, dry, intact, normal color. Absent: rash ED Course Vital Signs 02/01/20 02/01/20 18:08 18:15 Temperature 98.7 F Pulse Rate 73 69 Respiratory 19 19 Rate Blood Pressure 145/59 Blood Pressure 145/59 [Left] O2 Sat by Pulse 100 100 Oximetry ED Medical Decision Making - Lab Data Result diagrams: 02/01/20 18:24 02/01/20 18:24 - EKG Data -: EKG Interpreted by Me EKG shows normal: sinus rhythm, intervals Rate: normal - EKG Data Interpretation: nonspecific ST-T wave candice 02/01/20 18:17 EKG interpreted by me at 03/24/1954 Normal sinus rhythm rate 80 bpm left axis deviation no ST elevation multiple PVCs nonspecific T wave pattern - Medical Decision Making Mrs. Shepherd presents with bradycardia heart rate 30. Transmitted EKG prior to receiving atropine reveals bradycardic dysrhythmia bigeminy sinus beat followed by PVC. According to EMR, patient is taking digoxin in Coreg. I spoke with Dr. Hardy pourer bull ladle who recommended admission for cardiac monitoring overnight. He also recommended discontinuing Coreg and digoxin Patient admitted to telemetry in stable condition. Digoxin toxicity is a consideration however with level 0.6 highly unlikely. Also encouraged patient to wear LifeVest at all times. Critical care attestation.: If time is entered above; I have spent that time in minutes in the direct care of this critically ill patient, excluding procedure time. ED Disposition Clinical Impression: Dysrhythmia, cardiac, Bradycardia Disposition: OP ADMIT IP TO THIS HOSP Is pt being admited?: Yes Does the pt Need Aspirin: No Condition: Stable
[2020-02-01 18:59] LABS: Basophils # (Auto) 0.1 K/mm3 (0.0-0.1); Basophils % (Auto) 0.6 % (0.0-1.8); Eosinophils # (Auto) 0.1 K/mm3 (0.0-0.4); Eosinophils % (Auto) 1.4 % (0.0-4.3); Hematocrit 33.2 % (30.3-42.9); Hemoglobin 11.7 gm/dl (10.1-14.3); Lymphocytes # (Auto) 3.9 K/mm3 (1.2-5.4); Lymphocytes % (Auto) 41.6 % (13.4-35.0); Mean Corpuscular HGB Conc 35 % (30-34); Mean Corpuscular Volume 93 fl (79-97); Monocytes # (Auto) 0.6 K/mm3 (0.0-0.8); Monocytes % (Auto) 6.7 % (0.0-7.3); Platelet Count 229 K/mm3 (140-440); Red Blood Count 3.58 M/mm3 (3.65-5.03); Red Cell Distribution Width 14.2 % (13.2-15.2)
[2020-02-01 19:11] LABS: Alanine Aminotransferase 13 units/L (7-56); BUN/Creatinine Ratio 18; Blood Urea Nitrogen 14 mg/dL (7-17); Calcium 9.3 mg/dL (8.4-10.2); Hemolysis Index 4
[2020-02-02] MEDS: HEPARIN 5,000 UNIT/1 ML VIAL SUB-Q SCH ×2 (01:49→09:44)
--- NOTE | 2020-02-02 06:23 | History and Physical Report ---
History of Present Illness Date of examination: 02/01/20 Date of admission: 02/01/20 22:22 Chief complaint: Chief complaint is dizziness, bradycardia History of present illness: History of presenting illness, patient is a 64-year-old female who was having dizziness going on for some time with low heart rate, patient says the bradycardia comes back to normal but yesterday 02/01/2020 patient noted that the heart rate remained in the and then it bounced back to normal. Patient was also having dizziness, but denied history of chest pain, shortness of breath, fever or chills, nausea or vomiting or altered mental status. Patient was dilated by the physician [facility] Dr. Hardy to come to the emergency room. Past History Past Medical History: heart failure, hypertension Past Surgical History: No surgical history Social history: no significant social history. denies: smoking, IV drug use Family history: no significant family history Medications and Allergies Allergies Allergy/AdvReac Type Severity Reaction Status Date / Time morphine Allergy HIVES, Verified 01/18/20 15:50 ITCH, CHEST PAIN, BURNING Sulfa (Sulfonamide Allergy HIVES, Verified 01/18/20 15:50 Antibiotics) ITCH,CHEST PAIN, BURNING tramadol Allergy Rash, Verified 07/14/13 10:15 HIVES, ITCH,CHEST PAIN, BURNING Home Medications Medication Instructions Recorded Confirmed Last Taken Type Digoxin 125 mcg PO DAILY #30 tablet 12/13/19 01/18/20 Unknown Rx Spironolactone [Aldactone] 25 mg PO QDAY #30 tablet 12/13/19 01/18/20 01/18/20 Rx carvediloL [Coreg] 3.125 mg PO BID #60 tablet 12/13/19 01/18/20 01/18/20 Rx AtorvaSTATin [Lipitor] 20 mg PO QHS #30 tablet 01/21/20 Unknown Rx Furosemide [Lasix] 20 mg PO DAILY #30 tablet 01/21/20 Unknown Rx Active Meds: Active Medications Atorvastatin Calcium (Lipitor) 20 mg PO QHS GARY Furosemide (Lasix) 20 mg PO DAILY [facility] Heparin Sodium (Porcine) (Heparin) 5,000 unit SUB-Q Q12HR [facility] Last Admin: 02/02/20 01:49 Dose: Not Given Documented by: Spironolactone (Aldactone) 25 mg PO QDAY [facility] Review of Systems Constitutional: no weight loss, no weight gain, no fever, no chills, no sweats, no night sweats, no anorexia, no fatigue, no weakness, no malaise, no poor appetite Eyes: bilateral: other (NO BILATERAL EYE SYMPTOMS) Ears, nose, mouth and throat: no ear pain, no ear discharge, no decreased hearing, no nose pain, no nasal congestion, no nasal discharge, no sinus pressure, no dental pain, no mouth pain, no dysphagia, no hoarseness, no sore throat, no headache, no vertigo Breasts: deferred Cardiovascular: lightheadedness, no chest pain, no orthopnea, no palpitations, no rapid/irregular heart beat, no edema, no syncope, no shortness of breath Respiratory: no cough, no cough with sputum, no hemoptysis, no shortness of breath, no dyspnea on exertion, no congestion, no wheezing Gastrointestinal: no nausea, no vomiting, no diarrhea, no constipation, no change in bowel habits, no hematemesis, no jaundice Genitourinary Female: no dyspareunia, no dysmenorrhea, no pelvic pain, no flank pain, no menorrhagia, no dysuria, no urinary frequency, no stress incontinence, no post void dribbling, no incomplete emptying, no urge incontinence, no mixed incontinence, no difficulty voiding, no Menstruation: postmenopausal Rectal: no pain Musculoskeletal: no neck stiffness, no neck pain, no shooting arm pain, no arm numbness/tingling, no low back pain, no shooting leg pain, no myalgias Integumentary: no rash, no pruritis, no redness, no sores, no wounds, no jaundice, no bullae, no lesions, no darkening of skin, no depigmentation Neurological: no paralysis, no weakness, no numbness, no tingling, no seizures, no headaches Psychiatric: no anxiety, no insomnia Endocrine: no cold intolerance, no heat intolerance, no polydipsia, no polyuria Hematologic/Lymphatic: no easy bruising, no easy bleeding, no lymphadenopathy, no lymphedema Exam - Constitutional Vitals: Temp Pulse Resp BP Pulse Ox 98.4 F 54 L 16 104/49 98 02/02/20 04:00 02/02/20 04:00 02/02/20 04:00 02/02/20 04:00 02/02/20 04:00 General appearance: Present: no acute distress - EENT Eyes: Present: PERRL ENT: hearing intact, clear oral mucosa, dentition normal - Neck Neck: Present: supple, normal ROM - Respiratory Respiratory effort: normal - Cardiovascular Rhythm: regular Heart Sounds: Present: S1 & S2. Absent: gallop, systolic murmur, diastolic murmur, click - Extremities Extremities: no ischemia, No edema Peripheral Pulses: within normal limits - Abdominal General gastrointestinal: Present: soft, non-tender, non-distended. Absent: tender, distended, hepatomegaly, splenomegaly Female genitourinary: Present: deferred - Rectal Rectal Exam: deferred - Integumentary Integumentary: Present: clear, warm, dry - Musculoskeletal Musculoskeletal: strength equal bilaterally - Psychiatric Psychiatric: appropriate mood/affect - Neurologic Neurologic: CNII-XII intact HEART Score - HEART Score Age: 45-65 Risk factors: 1-2 risk factors Troponin: Troponin T < 0.010 ng/mL (0.00-0.029) 02/02/20 00:45 Troponin: < normal limit - Critical Actions Critical Actions: 0-3 pts:0.9-1.7%risk of adverse cardiac event.Candidate for discharge Results - Labs CBC & Chem 7: 02/01/20 18:24 02/01/20 18:24 Labs: Laboratory Last Values WBC 9.3 K/mm3 (4.5-11.0) 02/01/20 18:24 RBC 3.58 M/mm3 (3.65-5.03) L 02/01/20 18:24 Hgb 11.7 gm/dl (10.1-14.3) 02/01/20 18:24 Hct 33.2 % (30.3-42.9) 02/01/20 18:24 MCV 93 fl (79-97) 02/01/20 18:24 MCH 33 pg (28-32) H 02/01/20 18:24 MCHC 35 % (30-34) H 02/01/20 18:24 RDW 14.2 % (13.2-15.2) 02/01/20 18:24 Plt Count 229 K/mm3 (140-440) 02/01/20 18:24 Lymph % (Auto) 41.6 % (13.4-35.0) H 02/01/20 18:24 Harris % (Auto) 6.7 % (0.0-7.3) 02/01/20 18:24 Eos % (Auto) 1.4 % (0.0-4.3) 02/01/20 18:24 Baso % (Auto) 0.6 % (0.0-1.8) 02/01/20 18:24 Lymph # 3.9 K/mm3 (1.2-5.4) 02/01/20 18:24 Harris # 0.6 K/mm3 (0.0-0.8) 02/01/20 18:24 Eos # 0.1 K/mm3 (0.0-0.4) 02/01/20 18:24 Baso # 0.1 K/mm3 (0.0-0.1) 02/01/20 18:24 Seg Neutrophils % 49.7 % (40.0-70.0) 02/01/20 18:24 Seg Neutrophils # 4.6 K/mm3 (1.8-7.7) 02/01/20 18:24 Sodium 139 mmol/L (137-145) 02/01/20 18:24 Potassium 4.0 mmol/L (3.6-5.0) 02/01/20 18:24 Chloride 99.9 mmol/L (98-107) 02/01/20 18:24 Carbon Dioxide 24 mmol/L (22-30) 02/01/20 18:24 Anion Gap 19 mmol/L 02/01/20 18:24 BUN 14 mg/dL (7-17) 02/01/20 18:24 Creatinine 0.8 mg/dL (0.6-1.2) 02/01/20 18:24 Estimated GFR > 60 ml/min 02/01/20 18:24 BUN/Creatinine Ratio 18 % 02/01/20 18:24 Glucose 92 mg/dL (65-100) 02/01/20 18:24 Calcium 9.3 mg/dL (8.4-10.2) 02/01/20 18:24 Phosphorus 3.50 mg/dL (2.5-4.5) 02/01/20 18:24 Magnesium 1.70 mg/dL (1.7-2.3) 02/01/20 18:24 Total Bilirubin < 0.20 mg/dL (0.1-1.2) 02/01/20 18:24 AST 17 units/L (5-40) 02/01/20 18:24 ALT 13 units/L (7-56) 02/01/20 18:24 Alkaline Phosphatase 53 units/L (35-129) 02/01/20 18:24 Troponin T < 0.010 ng/mL (0.00-0.029) 02/02/20 00:45 NT-Pro-B Natriuret Pep 917.7 pg/mL (0-900) H 02/01/20 18:24 Total Protein 7.8 g/dL (6.3-8.2) 02/01/20 18:24 Albumin 4.0 g/dL (3.9-5) 02/01/20 18:24 Albumin/Globulin Ratio 1.1 % 02/01/20 18:24 Digoxin 0.6 ng/mL (0.9-2.0) L 02/01/20 19:41 Pozo/IV: Voiding Method Toilet IV Catheter Type [Right INT / Saline Lock Antecubital] Assessment and Plan - Patient Problems (1) Symptomatic bradycardia Current Visit: Yes Status: Acute Plan to address problem: 1.TELEMETRY OBSERVATION 2. SERIAL CARDIAC ENZYMES 3. 2 D ECHOCARDIOGRAM 4. CARDIOLOGY CONSULT 5. ELECTROLYTE MONITORING
[2020-02-02 09:44] VITALS: BP 127/73
[2020-02-02] MEDS ORDERED: SPIRONOLACTONE 25 MG TAB PO SCH (10:00)
[2020-02-02] MEDS ORDERED: FUROSEMIDE 20 MG TAB PO SCH (10:00)
--- NOTE | 2020-02-02 10:40 | Consultation ---
History of Present Illness Consult date: 02/02/20 Requesting physician: TORSTEN WILKERSON Consult reason: bradycardia History of present illness: The pt is a 64 YO female with a past medical history of NICMP, normal coronaries via C 01/20/2020, chronic HFrEF, PVCs, LifeVest in place, mod to severe MR, HTN, HLP. She is followed in our office by Dr. Lewis. She presented with c/o dizziness and low HR for the past several days. She states that her home BP cuff reported HR in 30s and thus she called our office and was advised to report to ED for further eval/management. Pt's home medication regimen includes digoxin 125mcg daily and and coreg 3.125mg BID. Digoxin level at admission 0.6. Admission ECG shows NSR with multifocal PVCs, HR 79bpm. Review of telemetry sinc e admission shows NSR with frequent multifocal PVCs, HR 60s. Pt reports she is feeling well this morning, no dizziness. Lexiscan MPI stress test done 12/12/2019 was negative for ischemia; EF 25%. tte done 12/10/2019 showed EF 15-20%, LA mild to mod dilated, mild AR, mod to severe MR, mild TR, RVSP 41mmHg. LHC done 01/20/2020 showed normal coronaries, EF 30%. Past History Past Medical History: heart failure, hypertension, other (as per HPI) Past Surgical History: No surgical history Social history: no significant social history. denies: smoking, IV drug use Family history: no significant family history Medications and Allergies Allergies Allergy/AdvReac Type Severity Reaction Status Date / Time morphine Allergy HIVES, Verified 01/18/20 15:50 ITCH, CHEST PAIN, BURNING Sulfa (Sulfonamide Allergy HIVES, Verified 01/18/20 15:50 Antibiotics) ITCH,CHEST PAIN, BURNING tramadol Allergy Rash, Verified 07/14/13 10:15 HIVES, ITCH,CHEST PAIN, BURNING Home Medications Medication Instructions Recorded Confirmed Last Taken Type Digoxin 125 mcg PO DAILY #30 tablet 12/13/19 01/18/20 Unknown Rx Spironolactone [Aldactone] 25 mg PO QDAY #30 tablet 12/13/19 01/18/20 01/18/20 Rx carvediloL [Coreg] 3.125 mg PO BID #60 tablet 12/13/19 01/18/20 01/18/20 Rx AtorvaSTATin [Lipitor] 20 mg PO QHS #30 tablet 01/21/20 Unknown Rx Furosemide [Lasix] 20 mg PO DAILY #30 tablet 01/21/20 Unknown Rx Active Meds: Active Medications Atorvastatin Calcium (Lipitor) 20 mg PO QHS [facility] Furosemide (Lasix) 20 mg PO DAILY [facility] Last Admin: 02/02/20 09:43 Dose: Not Given Documented by: Heparin Sodium (Porcine) (Heparin) 5,000 unit SUB-Q Q12HR [facility] Last Admin: 02/02/20 09:44 Dose: 5,000 unit Documented by: Spironolactone (Aldactone) 25 mg PO QDAY [facility] Last Admin: 02/02/20 09:44 Dose: 25 mg Documented by: Review of Systems Constitutional: no weight loss, no weight gain, no fever, no chills, no sweats Ears, nose, mouth and throat: no ear pain, no nose pain, no sinus pressure, no sinus pain Cardiovascular: lightheadedness, no chest pain, no orthopnea, no palpitations, no rapid/irregular heart beat, no edema, no syncope, no shortness of breath, no dyspnea on exertion, no high blood pressure Respiratory: no cough, no shortness of breath, no dyspnea on exertion, no congestion, no wheezing, no pain on inspiration Gastrointestinal: no abdominal pain, no nausea, no vomiting, no diarrhea, no constipation, no change in bowel habits Genitourinary Female: no pelvic pain, no flank pain, no dysuria, no urinary frequency, no urgency Musculoskeletal: no neck stiffness, no neck pain, no shooting arm pain, no arm numbness/tingling, no low back pain, no shooting leg pain Integumentary: no rash, no pruritis, no redness, no sores, no wounds Neurological: no head injury, no paralysis, no parathesias, no numbness, no tingling, no seizures, no syncope Psychiatric: no anxiety Endocrine: no cold intolerance, no heat intolerance Hematologic/Lymphatic: no easy bruising, no easy bleeding Allergic/Immunologic: no urticaria Physical Examination Vital Signs Temp Pulse Resp BP Pulse Ox 98.7 F 73 19 145/59 100 02/01/20 18:08 02/01/20 18:08 02/01/20 18:08 02/01/20 18:08 02/01/20 18:08 General appearance: no acute distress HEENT: Positive: PERRL, Normocephaly, Mucus Membranes Moist Neck: Positive: neck supple, trachea midline Cardiac: Positive: Reg Rate and Rhythm, S1/S2 Lungs: Positive: Decreased Breath Sounds Neuro: Positive: Grossly Intact Abdomen: Negative: Tender Skin: Negative: Rash Musculoskeletal: No Pain Extremities: Absent: edema Results 02/01/20 18:24 02/01/20 18:24 Cardiac Enzymes 02/01/20 Range/Units 18:24 AST 17 (5-40) units/L CBC 02/01/20 Range/Units 18:24 WBC 9.3 (4.5-11.0) K/mm3 RBC 3.58 L (3.65-5.03) M/mm3 Hgb 11.7 (10.1-14.3) gm/dl Hct 33.2 (30.3-42.9) % Plt Count 229 (140-440) K/mm3 Lymph # 3.9 (1.2-5.4) K/mm3 Loup # 0.6 (0.0-0.8) K/mm3 Eos # 0.1 (0.0-0.4) K/mm3 Baso # 0.1 (0.0-0.1) K/mm3 Comprehensive Metabolic Panel 02/01/20 Range/Units 18:24 Sodium 139 (137-145) mmol/L Potassium 4.0 (3.6-5.0) mmol/L Chloride 99.9 (98-107) mmol/L Carbon Dioxide 24 (22-30) mmol/L BUN 14 (7-17) mg/dL Creatinine 0.8 (0.6-1.2) mg/dL Glucose 92 (65-100) mg/dL Calcium 9.3 (8.4-10.2) mg/dL AST 17 (5-40) units/L ALT 13 (7-56) units/L Alkaline Phosphatase 53 (35-129) units/L Total Protein 7.8 (6.3-8.2) g/dL Albumin 4.0 (3.9-5) g/dL - Imaging and Cardiology Echo: report reviewed (12/10/2019 showed EF 15-20%, LA mild to mod dilated, mild AR, mod to severe MR, mild TR, RVSP 41mmHg. ) Cardiac cath: report reviewed ( 01/20/2020 showed normal coronaries, EF 30%. ) EKG: report reviewed, image reviewed EKG interpretations - Telemetry EKG Rhythm: Sinus Rhythm - EKG Sinus rhythms and dysrhythmias: sinus rhythm Assessment and Plan Pt presented with c/o dizziness and low HR for the past several days. She states that her home BP cuff reported HR in 30s and thus she called our office and was advised to report to ED for further eval/management. Pt's home medication regimen includes digoxin 125mcg daily and and coreg 3.125mg BID. Digoxin level at admission 0.6. Admission ECG shows NSR with multifocal PVCs, HR 79bpm. Review of telemetry since admission shows NSR with frequent multifocal PVCs, HR 60s. Pt reports she is feeling well this morning, no dizziness. D/c home digoxin, cont low dose coreg. No ACEI/ARB in setting of borderline low BPs. Currently stable cardiac status. LifeVest in place. Pt may discharge from cardiology standpoint. Recommend pt follow up in our office with Dr. Lewis within 2 weeks of discharge ([phone]). The patient has been seen in conjunction with Dr. Lewis who agrees with the assessment and plan of care. - Patient Problems (1) Bradycardia Current Visit: Yes Status: Resolved (2) PVCs (premature ventricular contractions) Current Visit: Yes Status: Acute (3) Chronic HFrEF (heart failure with reduced ejection fraction) Current Visit: Yes Status: Chronic (4) Nonischemic cardiomyopathy Current Visit: Yes Status: Chronic (5) Mitral regurgitation Current Visit: Yes Status: Chronic (6) Hypertension Current Visit: Yes Status: Chronic Qualifiers: Hypertension type: essential hypertension Qualified Code(s): I10 - Essenti al (primary) hypertension (7) Hyperlipidemia Current Visit: Yes Status: Chronic (8) NSVT (nonsustained ventricular tachycardia) Current Visit: Yes Status: Acute
--- NOTE | 2020-02-02 11:22 | Discharge Summary ---
Providers - Providers Date of Admission: 02/01/20 22:22 Date of discharge: 02/02/20 Attending physician: REBECA BOURNE MD 02/01/20 21:42 Consult to Physician [CONS] Stat Comment: Dr. Ramirez spoke with Dr. 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 She was discharged on digoxin 125mcg daily and and coreg 3.125mg BID. Digoxin level at admission 0.6. Admission ECG shows NSR with multifocal PVCs. Recent cardiac workup included a Lexiscan MPI stress test done 12/12/2019 was negative for ischemia and showed an EF 25%, TTE done 12/10/2019 showed EF 15-20%, LA mild to mod dilated, mild AR, mod to severe MR, mild TR, RVSP 41mmHg and LHC done 01/20/2020 showed normal coronaries, EF 30%. She was discharged with a lifevest during her last visit and was to f/u with cardiology in their office. She is being discharged with modifications to her home medications and will continued to be followed by [facility]. She will follow up outpatient with Dr. Lewis within 2 weeks of discharge ([phone]). Extensive bedside education done by Dr. eLwis and Dr. Bourne. Patient states understanding. Disposition: - TO HOME OR SELFCARE Time spent for discharge: 35 Core Measure Documentation - Palliative Care Palliative Care/ Comfort Measures: Not Applicable - Core Measures Any of the following diagnoses?: history only Exam - Constitutional Vitals: Temp Pulse Resp BP Pulse Ox 97.9 F 76 18 127/73 98 02/02/20 08:26 02/02/20 09:44 02/02/20 08:26 02/02/20 09:44 02/02/20 08:26 General appearance: Present: no acute distress - EENT Eyes: Present: PERRL, EOM intact ENT: hearing intact, clear oral mucosa - Neck Neck: Present: supple, normal ROM - Respiratory Respiratory effort: normal Respiratory: bilateral: CTA - Cardiovascular Rhythm: regular Heart Sounds: Present: S1 & S2. Absent: systolic murmur, diastolic murmur - Extremities Extremities: no ischemia, pulses intact, pulses symmetrical, No edema, normal temperature, normal color, Full ROM Peripheral Pulses: within normal limits - Abdominal General gastrointestinal: Present: soft, non-tender, non-distended, normal bowel sounds - Integumentary Integumentary: Present: clear, warm, dry - Musculoskeletal Musculoskeletal: strength equal bilaterally - Psychiatric Psychiatric: appropriate mood/affect, cooperative - Neurologic Neurologic: CNII-XII intact, no focal deficits, moves all extremities - Allied Health Allied health notes reviewed: nursing Plan Activity: advance as tolerated Diet: low fat, low cholesterol, low salt Special Instructions: record daily weights, record daily BP diary Additional Instructions: Please report to the nearest emergency department or contact the primary care physician to have worsening symptoms. Please continue to follow up with Dr. Lewis at [facility] on a outpatient bases within 1 to 2 weeks. Follow up with: DEYANIRA ZAMORA MD [Primary Care Provider] - 3-5 Days THEODORA LEWIS MD [Staff Physician] - 7 Days
== END 2020-02-02 12:48 | disposition home or self-care (01) ==
LOC: ED 17:54 → 4A 22:22
PROVIDERS: ADMIT Internal Medicine; ATTEND Internal Medicine
DX: I49.3 Ventricular premature depolarization (principal); I42.8 Other cardiomyopathies; I49.9 Cardiac arrhythmia, unspecified; I11.0 Hypertensive heart disease with heart failure; I50.22 Chronic systolic (congestive) heart failure; R42 Dizziness and giddiness; I34.0 Nonrheumatic mitral (valve) insufficiency; I47.2 Ventricular tachycardia; E78.5 Hyperlipidemia, unspecified; Z90.710 Acquired absence of both cervix and uterus; Z79.01 Long term (current) use of anticoagulants; Z79.899 Other long term (current) drug therapy; Z88.5 Allergy status to narcotic agent; Z88.6 Allergy status to analgesic agent; Z88.2 Allergy status to sulfonamides
CPT/HCPCS: 36415; 80053; 80162; 83735; 83880; 84100; 84484; 85025; 93005; 96372; 99284; G0378; J1644